=== PATIENT | female | born 1965 | race Caucasian/White ===

== ENCOUNTER 2017-02-11 13:19 | Emergency (ER) | payer MEDICAID, SELFPAY ==
[2017-02-11 15:58] VITALS: BP 148/78; PULSE 73; RESP 18; TEMP 37.2; O2SAT 99; BMI 21.2
--- NOTE | 2017-02-11 16:59 | HMH.EDUTC ---
[facility] [place] Clinical Impression: COPD with acute bronchitis, Costochondritis Disposition: Home, Self-Care Condition on Discharge: Good Instructions: DI for Acute Bronchitis, DI for Costochondritis Additional Instructions: * STOP SMOKING!!!! I know you are working on it. Keep up the good work. * start antibiotic today. Be sure to complete entire prescription even if feeling better. * Monitor Temp. FU if fever develops * Pain sounds like costochondiritis from so much coughing. Tylenol every 4 hours as needed no more then 5 times a day or 4000mg in 24 hours and/or ibuprofen every 6 hours as needed no more then 3200mg in 24 hours (as long as your primary care doctor has told you that it is ok to take both) for fever/aches/pain. * humidifier/vaporizer/hot steamy shower * Inhaler every 4-6 hours as needed like we discussed. Should help open airways and improve cough, wheezing, shortness of breath. * Mucinex during the day for your cough and cough suppressant only at night. Be sure to drink lots of water. Insurance may not cover a prescription of mucinex. Might be cheaper to get 400mg tablets and take 2 tablets morning, midday and evening all with lots of water. * Start steroid today. Helps with inflammation therefore, cough and wheezing. Follow directions on package. Rvwd side effects. Pt reports they have taken them before. Follow up IMMEDIATELY for new or worsening symptoms OR no noticeable improvement over the next 48-72 hours. 911 for difficulty breathing. Prescriptions: Azithromycin [Z-Ranulfo 250mg Tab] 250 mg PO UD DOSE PK #6 tab predniSONE [Prednisone 20mg Tab] 20 mg PO BID 5 Days #10 tab Referrals: Saqib Giles MD [Primary Care Provider] - Time of Disposition: 17:28 Medical Decision Making Vital Signs: 02/11/17 15:58 Temperature 98.9 F Temperature Source Temporal Artery Scan Pulse Rate [Left] 73 Respiratory Rate 18 Blood Pressure [Right Arm] 148/78 Blood Pressure Mean [Right Arm] 101 Blood Pressure Source [Right Arm] Automatic Cuff Blood Pressure Position [Right Arm] Sitting 02 Sat by Pulse Oximetry 99 Oxygen Delivery Method Room Air - Franc Inquiry Pt receiving controlled substance: No [facility] [place] HPI - General Stated complaint: suspected pluracy Time Seen by Provider: 02/11/17 16:45 Mode of Arrival: Ambulatory Source of Information: Patient Limitations: No Limitations Description of Symptoms (Recalled from Triage Doc. by RN): COUGH, PAINFUL BREATHING X3 DAYS HEENT Symptoms (Recalled from RN notes): No Resp Symptoms (Recalled from RN notes): Yes Skin Symptoms (Recalled from RN notes): No MS Symptoms (Recalled from RN notes): No Functional Status (Recalled from RN notes): N - History of Present Illness Provider Complaint: c/o productive cough and pain throughout ribs with coughing. Cough x 4-5 days with pain more last 1-2 days. Chronic mild nonprod cough. Tobacco abuse and COPD. Uses incruse and dulera daily. has noticed an increase need for ventolin the last 2 days. Sputum now, thick and yellow. No fever, aches, chills. pain worse when coughing, deep breathing or laying on ribs. Improved w/ motrin. Hasn't taken or tried anything else. No known sick contacts. - Related Data Previous Rx's Medication Instructions Recorded Azithromycin [Z-Ranulfo 250mg Tab] 250 mg PO UD DOSE PK #6 tab 02/11/17 predniSONE [Prednisone 20mg 20 mg PO BID 5 Days #10 tab 02/11/17 Tab] Allergies Allergy/AdvReac Type Severity Reaction Status Date / Time doxycycline [DOXYCYCLINE] Allergy Unknown Verified 02/11/17 16:02 - Worker's Comp Is this a Worker's Comp case?: No [facility] History I have reviewed the patient's past medical history: Yes Medical History: Reports:: Chronic Obstructive Pulmonary Disease (COPD) Denies:: Congestive Heart Failure, Diabetes Mellitus Type 1, Diabetes Mellitus Type 2, Hypertension - *Social History Smoking Status: Current every day smoker Tobacco Type: cigarettes Alc
== END 2017-02-11 17:36 | disposition home or self-care (01) ==
PROVIDERS: Emergency Provider Nurse Practitioner Family; PCP Emergency Medicine
DX: J44.0 Chronic obstructive pulmonary disease with (acute) lower respiratory infection (principal); M94.0 Chondrocostal junction syndrome [Tietze]; Z88.1 Allergy status to other antibiotic agents
CPT/HCPCS: 99202

== ENCOUNTER → 2017-04-15 12:05 | Outpatient (CLI) | payer MEDICAID, SELFPAY ==
--- NOTE | 2017-04-15 12:08 | XR_ITS ---
XR chest 2V HISTORY: Cough, smoker ITS.REASON: cough ORDERING PHYSICIAN: Savannah Turcios PATIENT AGE: 52 years COMPARISON: 01/17/2016 FINDINGS: The cardiomediastinal silhouette and pulmonary vascularity are within normal limits. There is hyperinflation with attenuation of the peripheral pulmonary vessels with mild coarsening of the bronchovascular markings consistent with COPD/smoking related lung disease. No lobar consolidation or collapse. No acute bony anomalies. IMPRESSION: COPD, no change with no acute finding
== END ==
PROVIDERS: PCP Emergency Medicine; Visit Provider Nurse Practitioner Family
DX: R05 Cough (principal)
CPT/HCPCS: 71046

== ENCOUNTER → 2017-05-18 09:44 | Outpatient (CLI) | payer MEDICAID, SELFPAY ==
[2017-05-18 10:35] VITALS: PULSE 68; PULSE 71
[2017-05-18 11:10] VITALS: BP 130/83; BP 140/90; PULSE 71; PULSE 98; RESP 16; RESP 22; O2SAT 97; O2SAT 98
--- NOTE | 2017-05-18 11:20 | CT_ITS ---
CT chest w con HISTORY: Follow-up pulmonary nodule, emphysema, COPD ITS.REASON: PULMONARY NODULES ORDERING PHYSICIAN: Yobani Arango MD PATIENT AGE: 52 years TECHNIQUE: Axial images obtained following the administration of 75 mL of Isovue 370 . Sagittal, and coronal reformatted images are also generated and reviewed. All CT scans at the facility use one or more dose reduction, viz: automated exposure control; ma/kV adjustment per patient size (including targeted exams where dose is matched to indication; i.e. head); or iterative reconstruction technique. COMPARISON: 08/04/2016 FINDINGS: No mediastinal or hilar mass. Small nodes are present in the right hilum. Right hilar nodes measure 14 x 14 mm. There are diffuse centrilobular and paraseptal emphysematous changes. The previously noted opacity in the right apex medially is unchanged. Scattered fibrotic changes are present throughout both lungs. No suspicious pulmonary nodules are evident. No effusions or infiltrates. No evidence of aortic aneurysm or central pulmonary embolus. Normal heart size. Unremarkable upper abdomen. No acute bony anomalies. IMPRESSION: 1. Centrilobular and paraseptal emphysema with scattered fibrotic changes. 2. No change right apical nodular opacity probably related to an area of parenchymal fibrosis. 3. Mildly prominent right hilar lymph nodes nonspecific
== END ==
PROVIDERS: PCP Emergency Medicine; Visit Provider Internal Medicine
DX: R06.02 Shortness of breath (principal); J43.2 Centrilobular emphysema; J44.9 Chronic obstructive pulmonary disease, unspecified; R91.8 Other nonspecific abnormal finding of lung field
CPT/HCPCS: 71260; 94060; 94618; 94640; 94727; 94729; Q9967

== ENCOUNTER → 2017-07-20 13:49 | Outpatient (POV) | payer MEDICAID, SELFPAY | PROVIDERS: PCP Emergency Medicine; Visit Provider Internal Medicine | DX: Z00.00 Encounter for general adult medical examination without abnormal findings (principal) ==

== ENCOUNTER → 2018-01-25 08:42 | Outpatient (POV) | payer MEDICAID, SELFPAY | PROVIDERS: Visit Provider Internal Medicine | DX: Z00.00 Encounter for general adult medical examination without abnormal findings (principal) ==

== ENCOUNTER → 2018-06-13 11:21 | Outpatient (CLI) | payer MEDICAID, SELFPAY ==
--- NOTE | 2018-06-13 11:42 | XR_ITS ---
XR chest 2V HISTORY: ITS.REASON: cough, history of smoking ORDERING PHYSICIAN: Savannah Turcios APRN PATIENT AGE: 53 years COMPARISON: 04/15/2017 FINDINGS: The cardiomediastinal silhouette and pulmonary vascularity are within normal limits. There is hyperinflation with attenuation of the peripheral pulmonary vessels consistent with COPD.. No lobar consolidation or collapse No acute bony abnormalities. IMPRESSION: COPD, no change with no acute finding
== END ==
PROVIDERS: PCP Nurse Practitioner Family; Visit Provider Nurse Practitioner Family
DX: R05 Cough (principal); R06.2 Wheezing
CPT/HCPCS: 71046

== ENCOUNTER → 2018-06-14 07:59 | Outpatient (CLI) | payer MEDICAID, SELFPAY ==
[2018-06-14 08:37] LABS: Basophils # 0.1 K/mm3 (0-0.2); Basophils % 0.8 % (0.1-2.0); Eosinophils # 0.2 K/mm3 (0.0-0.4); Eosinophils % 2.1 % (0.1-12.0); Hematocrit 47.2 % (37.0-47.0); Lymphocytes # 1.5 K/mm3 (0.7-4.5); Lymphocytes % 20.7 % (10-50); Mean Corpuscular HGB Conc 33.8 g/dL (31.8-35.4); Mean Corpuscular Hemoglobin 30.1 pg (27.0-31.2); Mean Corpuscular Volume 88.9 fl (81-99); Mean Platelet Volume 6.6 fl (7.4-10.4); Monocytes # 0.4 K/mm3 (0.1-1.0); Monocytes % 4.8 % (1.7-9.3); Neutrophils # 5.3 K/mm3 (1.8-7.8); Neutrophils % 71.8 % (37.0-80.0); Platelet Count 285 K/mm3 (142-424); Red Blood Count 5.31 M/mm3 (4.20-5.40); Red Cell Distribution Width 13.2 % (11.5-17.5); White Blood Count 7.4 K/mm3 (4.8-10.8)
[2018-06-14 11:04] LABS: Alanine Aminotransferase 23 U/L (12-78); Albumin Level 3.9 gm/dL (3.4-5.0); Albumin/Globulin Ratio 1.1 (1.1-1.8); Alkaline Phosphatase 113 U/L (46-116); Anion Gap 10.4 mEq/L (5-15); Aspartate Amino Transferase 11 U/L (15-37); Bilirubin,Total 0.4 mg/dL (0.2-1.0); Blood Urea Nitrogen 12 mg/dL (7-18); Calcium 8.7 mg/dL (8.5-10.1); Carbon Dioxide 30 mmol/L (21.0-32.0); Chloride 105 mmol/L (98-107); Chol/HDL Ratio 3.7 (1-3.5); Cholesterol 205 mg/dL (140-200); Estimated Glomerular Filt Rate 76 ml/min (>60); Free T4 (Free Thyroxine) 1.05 ng/dl (0.76-1.46); GFR (African American) 92 ML/MIN (>60); Globulin 3.5 gm/dl (1.3-3.2); Glucose 98 mg/dL (74-106); HDL Cholesterol 56 mg/dL (29-89); LDL Cholesterol 137 mg/dL (0-130); Potassium 4.4 mmoL/L (3.5-5.1); Sodium 141 mmol/L (136-145); Thyroid Stimulating Hormone 3.84 uIU/ml (0.358-3.740); Total Protein,Serum 7.4 gm/dL (6.4-8.2); Triglycerides 59 mg/dL (30-200); VLDL Cholesterol 12 mg/dL (0-40)
[2018-06-15 13:57] LABS: Estradiol 16.5 pg/mL (.); FSH 104.8 mIU/mL (.); LH 70.5 mIU/mL (.); Vitamin D 25 Hydroxy 22.4 ng/mL (30.0-100.0)
== END ==
PROVIDERS: Visit Provider Nurse Practitioner Family
DX: R23.2 Flushing (principal); R53.83 Other fatigue; N92.6 Irregular menstruation, unspecified; E55.9 Vitamin D deficiency, unspecified
CPT/HCPCS: 36415; 80053; 80061; 82652; 82670; 83001; 83002; 84439; 84443; 85025

== ENCOUNTER → 2018-07-06 10:46 | Outpatient (CLI) | payer MEDICAID, SELFPAY ==
[2018-07-06 11:35] VITALS: PULSE 68; PULSE 70
[2018-07-06 11:55] VITALS: BP 128/76; BP 138/90; PULSE 70; PULSE 94; RESP 16; RESP 18; O2SAT 94; O2SAT 97
== END ==
PROVIDERS: PCP Emergency Medicine; Visit Provider Internal Medicine
DX: J44.9 Chronic obstructive pulmonary disease, unspecified (principal)
CPT/HCPCS: 94060; 94618; 94640; 94727; 94729

== ENCOUNTER → 2019-01-09 09:10 | Outpatient (CLI) | payer OTHER, SELFPAY ==
--- NOTE | 2019-01-09 09:14 | XR_ITS ---
PROCEDURE: XR CHEST 2V CLINICAL HISTORY: cough Cough, congestion, smoker COMPARISON: CXR CHEST(2 VIEWS-NOT PORTABLE) from 01/15/2016 CXR CHEST(2 VIEWS-NOT PORTABLE) from 01/17/2016 CXR2V XR chest 2V from 04/15/[address] chest w con from 05/18/2017 FINDINGS: The cardiomediastinal silhouette and pulmonary vascularity are within normal limits. Patchy density is present in the left lower lobe and may represent an area of infiltrate. Recommend following till clear. No acute bony abnormalities. IMPRESSION: COPD with patchy infiltrate in the left lower lobe Dictated by: Juliano Rothman MD 01/09/2019 15:47 Electronically signed by Juliano Rothman MD in [place] 01/09/2019 15:47
== END ==
PROVIDERS: PCP Emergency Medicine; Visit Provider Nurse Practitioner Family
DX: R05 Cough (principal); R09.89 Other specified symptoms and signs involving the circulatory and respiratory systems
CPT/HCPCS: 71046

== ENCOUNTER → 2019-03-17 12:52 | Outpatient (CLI) | payer OTHER, SELFPAY ==
--- NOTE | 2019-03-17 12:57 | CT_ITS ---
PROCEDURE: CT CHEST WO CON CLINICAL INDICATION: LUNG NODULE Follow-up lung nodule COMPARISON: [facility] CT CHEST W/O CONTRAST from 08/04/[address] chest w con from 05/18/2017 TECHNIQUE: Axial images obtained with sagittal and coronal reformats. All CT scans at the facility use one or more dose reduction, viz: automated exposure control, ma/kV adjustment per patient size (including targeted exams where dose is matched to indication, i.e. head), or iterative reconstruction technique. FINDINGS: COPD with centrilobular emphysema and scattered areas of scarring. Biapical fibrosis is present. In addition, there is a 6 mm opacity in the right apex medially image 16 series 3 which appears somewhat more prominent but could be related to slice orientation.. A 3 mm nodular opacity is present in the right upper lobe laterally probably unchanged and irregular opacity is present in the right upper lobe posteriorly at 6 mm unchanged. No central obstructing lesions. The no acute bony anomalies. IMPRESSION: COPD with centrilobular emphysema and scattered parenchymal opacities as described above. Most of these are not significantly changed. One nodular opacity in the right upper lobe medially is slightly more prominent but could be related to the technique. Consider continued six-month follow-up. Dictated by: Juliano Rothman MD 03/20/2019 08:34 Electronically signed by Juliano Rothman MD in [place] 03/20/2019 08:34
== END ==
PROVIDERS: PCP Emergency Medicine; Visit Provider Nurse Practitioner Family
DX: R91.1 Solitary pulmonary nodule (principal)
CPT/HCPCS: 71250

== ENCOUNTER → 2019-03-22 15:35 | Outpatient (CLI) | payer OTHER, SELFPAY ==
--- NOTE | 2019-03-22 15:35 | MM_ITS ---
PROCEDURE: MM DIG SCREENING MAMM BI W/CAD CLINICAL INDICATION: screening There is no personal or family history of breast cancer COMPARISON: DMSB DIG MAMM-SCREEN MAGDALENA W/CAD from 02/20/2016 [id number] DIG MAMM-DX UNI A/VW-RT W/CAD from 03/04/2016 TECHNIQUE: Standard CC and MLO images and 3D Tomosynthesis was obtained. R2 CAD reviewed. FINDINGS: Moderate diffuse fibroglandular densities are seen in the central portions of both breasts. The findings are fairly symmetrical bilaterally. Jaret images were reviewed showing no suspicious abnormality. There are no suspicious microcalcifications. IMPRESSION: Moderate breast density with no suspicious lesions seen BI-RAD Category: 1 Negative FOLLOW-UP: 1YR 1 Year Follow-up (A letter has been sent to the patient regarding results of the study.) Dictated by: Dr. Mark Jackson MD 03/25/2019 08:[address] Mark Jackson MD in [place] 03/25/2019 08:57
== END ==
PROVIDERS: PCP Emergency Medicine; Visit Provider Emergency Medicine
DX: Z12.31 Encounter for screening mammogram for malignant neoplasm of breast (principal)
CPT/HCPCS: 77063; 77067

== ENCOUNTER → 2019-09-19 14:32 | Outpatient (CLI) | payer OTHER, SELFPAY ==
[2019-09-19 15:30] VITALS: PULSE 61; PULSE 64
== END ==
PROVIDERS: PCP Emergency Medicine; Visit Provider Nurse Practitioner Family
DX: J44.9 Chronic obstructive pulmonary disease, unspecified (principal)
CPT/HCPCS: 94060; 94618; 94640; 94727; 94729

== ENCOUNTER → 2019-11-27 09:04 | Outpatient (CLI) | payer OTHER, SELFPAY ==
--- NOTE | 2019-11-27 09:07 | CT_ITS ---
PROCEDURE: CT CHEST WO CON CLINICAL INDICATION: MULTIPLE PULMONARY NODULES Follow-up pulmonary nodules COMPARISON: CT CT CHEST WO CON from 03/17/2019 TECHNIQUE: Axial images obtained with sagittal and coronal reformats. All CT scans at the facility use one or more dose reduction, viz: automated exposure control, ma/kV adjustment per patient size (including targeted exams where dose is matched to indication, i.e. head), or iterative reconstruction technique. FINDINGS: HEART AND MEDIASTINAL STRUCTURES: There are few scattered small mediastinal lymph nodes which do not appear significantly changed. LUNGS AND PLEURAL SPACES: Centrilobular emphysema and paraseptal emphysema noted with scattered areas of scarring. There is new parenchymal opacity in the left apex medially. This contains some internal lucencies. Previously noted opacity in the right upper lobe medially is not significantly changed. No effusions are evident. BONY STRUCTURES: No acute bony abnormalities apparent. UPPER ABDOMEN: There is faint areas of increased density in the right kidney suggesting nephrolithiasis or arterial calcification. ADDITIONAL FINDINGS: No other significant abnormalities. IMPRESSION: COPD with centrilobular emphysema and paraseptal emphysema with scattered areas of scarring and with a new parenchymal opacity in the left apex medially. This does contain some central lucencies and may represent an area of lung consolidation or volume loss. Recommend continued six-month follow-up to confirm resolution or stability due to the new lesion. Previously noted opacity in the right apex is unchanged. Dictated by: Juliano Rothman MD 11/28/2019 06:29 Juliano Rothman MD in [place] 11/28/2019 06:29
== END ==
PROVIDERS: PCP Emergency Medicine; Referring Provider Internal Medicine Pulmonary Disease; Visit Provider Internal Medicine
DX: R91.8 Other nonspecific abnormal finding of lung field (principal); J44.9 Chronic obstructive pulmonary disease, unspecified; R05 Cough; J43.2 Centrilobular emphysema; R06.02 Shortness of breath
CPT/HCPCS: 71250

== ENCOUNTER → 2020-02-20 18:24 | Outpatient (CLI) | payer OTHER, SELFPAY ==
[2020-02-20 19:16] LABS: Basophils # 0.1 K/mm3 (0-0.2); Basophils % 1.2 % (0.1-2.0); Eosinophils # 0.2 K/mm3 (0.0-0.4); Eosinophils % 2.1 % (0.1-12.0); Hematocrit 50.4 % (37.0-47.0); Hemoglobin 16.3 g/dL (12.2-16.2); Lymphocytes # 1.9 K/mm3 (0.7-4.5); Lymphocytes % 22.9 % (10-50); Mean Corpuscular HGB Conc 32.3 g/dL (31.8-35.4); Mean Corpuscular Hemoglobin 30.6 pg (27.0-31.2); Mean Corpuscular Volume 94.6 fl (81-99); Mean Platelet Volume 8.3 fl (7.4-10.4); Monocytes # 0.4 K/mm3 (0.1-1.0); Monocytes % 5.1 % (1.7-9.3); Neutrophils # 5.7 K/mm3 (1.8-7.8); Neutrophils % 68.7 % (37.0-80.0); Platelet Count 308 K/mm3 (142-424); Red Blood Count 5.33 M/mm3 (4.20-5.40); Red Cell Distribution Width 13.7 % (11.5-17.5); White Blood Count 8.3 K/mm3 (4.8-10.8)
[2020-02-20 19:49] LABS: Alanine Aminotransferase 17 U/L (12-78); Albumin Level 4.4 g/dl (3.5-5.0); Albumin/Globulin Ratio 1.5 (1.1-1.8); Alkaline Phosphatase 111 U/L (38-126); Anion Gap 13.1 mEq/L (5-15); Aspartate Amino Transferase 24 U/L (14-36); Bilirubin,Total 0.4 mg/dl (0.2-1.3); Blood Urea Nitrogen 15 mg/dl (7-17); Calcium 9.4 mg/dl (8.4-10.2); Carbon Dioxide 31 mmol/L (22.0-30.0); Chloride 100 mmol/L (98-107); Chol/HDL Ratio 3.2 (1-3.5); Cholesterol 222 mg/dl (140-200); Estimated Glomerular Filt Rate 75 ml/min (>60); GFR (African American) 91 ML/MIN (>60); Globulin 2.9 g/dL (1.3-3.2); Glucose 84 mg/dl (74-100); HDL Cholesterol 69 mg/dl (40-60); Potassium 5.1 mmoL/L (3.5-5.1); Sodium 139 mmol/L (136-145); Total Protein,Serum 7.3 g/dl (6.3-8.2); Triglycerides 63 mg/dl (30-150); VLDL Cholesterol 13 mg/dL (0-40)
[2020-02-20 20:00] LABS: Direct LDL Cholesterol 124.94 mg/dL (100-129)
[2020-02-20 20:06] LABS: Free T4 (Free Thyroxine) 1.17 ng/dl (0.78-2.19)
[2020-02-20 20:07] LABS: 25-OH Vitamin D, Total 19.4 ng/mL (30-100)
[2020-02-20 20:20] LABS: Thyroid Stimulating Hormone 3.41 uIU/mL (0.465-4.68)
== END ==
PROVIDERS: Visit Provider Emergency Medicine
DX: J44.9 Chronic obstructive pulmonary disease, unspecified (principal); E55.9 Vitamin D deficiency, unspecified
CPT/HCPCS: 80053; 80061; 82306; 84439; 84443; 85025

== ENCOUNTER → 2020-05-14 13:45 | Outpatient (CLI) | payer OTHER, SELFPAY ==
--- NOTE | 2020-05-14 13:45 | CT_ITS ---
PROCEDURE: CT CHEST WO CON CLINICAL INDICATION: Nodule 6 month follow up Prior on pacs COMPARISON: CT CT CHEST WO CON from 03/17/[address] CHEST WO CON from 11/27/2019 TECHNIQUE: Axial images obtained with sagittal and coronal reformats. All CT scans at the facility use one or more dose reduction, viz: automated exposure control, ma/kV adjustment per patient size (including targeted exams where dose is matched to indication, i.e. head), or iterative reconstruction technique. FINDINGS: HEART AND MEDIASTINAL STRUCTURES: There is scattered small mediastinal lymph nodes unchanged. LUNGS AND PLEURAL SPACES: COPD with centrilobular emphysema and scattered areas of scarring. Biapical scarring once again noted. Two small nodules right upper lobe laterally at 4 mm each unchanged. Thickening along the right minor fissure laterally has developed since the previous exam may be due to some subpleural atelectatic change.. There is some nodularity in this region measuring 8 mm. Are there is mild diffuse bronchial thickening. Previously noted opacity in the left apex posteriorly has resolved consistent with an area of atelectasis or infiltrate which has improved. There is a new opacity in the left upper lobe series 3, image 27 measuring 7 mm. No effusions or infiltrates. There is some patchy ground-glass attenuation in the left perihilar region nonspecific within the lower lobe. BONY STRUCTURES: No acute bony abnormalities apparent. UPPER ABDOMEN: Nonobstructing stone is present in the upper pole of the right kidney at 4 mm. ADDITIONAL FINDINGS: No other significant abnormalities. IMPRESSION: 1. COPD with centrilobular emphysematous changes and scattered areas of scarring. Previously noted area of opacification in the left upper lobe has resolved. 2. There is a new nodular opacity in the region of the right minor fissure . This may be due to developing nodule or atelectatic/inflammatory change. Additional nodular opacity is present in the left upper lobe at 7 mm and may be related to an area of atelectasis or developing scarring. Continued three to six-month follow-up may confirm stability or resolution of the new nodules. Dictated by: Juliano Rothman MD 05/16/2020 10:08 Juliano Rothman MD in [place] 05/16/2020 10:08
== END ==
PROVIDERS: PCP Emergency Medicine; Visit Provider Internal Medicine Pulmonary Disease
DX: R91.8 Other nonspecific abnormal finding of lung field (principal)
CPT/HCPCS: 71250

== ENCOUNTER → 2020-08-30 14:16 | Outpatient (CLI) | payer OTHER, SELFPAY ==
[2020-08-30 14:41] LABS: Basophils # 0.1 K/mm3 (0-0.2); Basophils % 0.8 % (0.1-2.0); Eosinophils # 0.1 K/mm3 (0.0-0.4); Eosinophils % 1.1 % (0.1-12.0); Hematocrit 46.7 % (37.0-47.0); Hemoglobin 15.3 g/dL (12.2-16.2); Lymphocytes # 1.4 K/mm3 (0.7-4.5); Lymphocytes % 12.7 % (10-50); Mean Corpuscular HGB Conc 32.8 g/dL (31.8-35.4); Mean Corpuscular Hemoglobin 29.1 pg (27.0-31.2); Mean Corpuscular Volume 88.6 fl (81-99); Mean Platelet Volume 7.4 fl (7.4-10.4); Monocytes # 0.6 K/mm3 (0.1-1.0); Monocytes % 5.3 % (1.7-9.3); Neutrophils # 9.1 K/mm3 (1.8-7.8); Platelet Count 304 K/mm3 (142-424); Red Blood Count 5.27 M/mm3 (4.20-5.40); Red Cell Distribution Width 13.5 % (11.5-17.5); White Blood Count 11.3 K/mm3 (4.8-10.8)
[2020-09-01 08:13] LABS: Alpha-1-Antitrypsin 178 mg/dL (101-187)
[2020-09-05 09:39] LABS: D001-IgE D pteronyssinus <0.10 kU/L (Class 0); D002-IgE D farinae <0.10 kU/L (Class 0); E001-IgE Cat Dander <0.10 kU/L (Class 0); E005-IgE Dog Dander <0.10 kU/L (Class 0); E072-IgE Mouse Urine <0.10 kU/L (Class 0); G002-IgE Bermuda Grass <0.10 kU/L (Class 0); G006-IgE Timothy Grass <0.10 kU/L (Class 0); I006-IgE Cockroach, German <0.10 kU/L (Class 0); Immunoglobulin E, Total 9 IU/mL (6-495); M001-IgE Penicillium chrysogen <0.10 kU/L (Class 0); M002-IgE Cladosporium herbarum <0.10 kU/L (Class 0); M003-IgE Aspergillus fumigatus <0.10 kU/L (Class 0); M006-IgE Alternaria alternata <0.10 kU/L (Class 0); T001-IgE Maple/Box Elder <0.10 kU/L (Class 0); T006-IgE Cedar, Mountain <0.10 kU/L (Class 0); T007-IgE Oak, White <0.10 kU/L (Class 0); T008-IgE Elm, American <0.10 kU/L (Class 0); T010-IgE Walnut <0.10 kU/L (Class 0); T011-IgE Maple Leaf Sycamore <0.10 kU/L (Class 0); T014-IgE Cottonwood <0.10 kU/L (Class 0); T015-IgE Ash, White <0.10 kU/L (Class 0); T022-IgE Pecan, Hickory <0.10 kU/L (Class 0); T070-IgE White Mulberry <0.10 kU/L (Class 0); W001-IgE Ragweed, Short <0.10 kU/L (Class 0); W011-IgE Thistle, Russian <0.10 kU/L (Class 0); W014-IgE Pigweed, Common <0.10 kU/L (Class 0); W016-IgE Rough Marshelder <0.10 kU/L (Class 0)
== END ==
PROVIDERS: Visit Provider Internal Medicine Pulmonary Disease
DX: J44.9 Chronic obstructive pulmonary disease, unspecified (principal); J45.909 Unspecified asthma, uncomplicated
CPT/HCPCS: 36415; 82103; 82785; 85025; 86003

== ENCOUNTER → 2020-10-04 17:54 | Outpatient (CLI) | payer OTHER, SELFPAY ==
[2020-10-04 19:25] LABS: Amphetamine/Metha Screen,Urine Negative ng/ml (<1000)
[2020-10-04 19:26] LABS: Barbiturates Screen,Urine Negative ng/ml (<200)
[2020-10-04 19:27] LABS: Benzodiazepines Screen,Urine Negative ng/ml (<200); Cannabinoid Screen,Urine Positive ng/ml (<50)
[2020-10-04 19:29] LABS: Cocaine Screen,Urine Negative ng/ml (<300); Methadone Screen,Urine Negative ng/ml (<300)
[2020-10-04 19:30] LABS: Opiate Screen,Urine Positive ng/ml (<300)
[2020-10-04 19:31] LABS: Phencyclidine Screen,Urine Negative ng/ml (<25)
== END ==
PROVIDERS: Visit Provider Nurse Practitioner Family
DX: Z76.0 Encounter for issue of repeat prescription (principal)
CPT/HCPCS: 80305

== ENCOUNTER → 2020-12-04 13:15 | Outpatient (CLI) | payer OTHER, SELFPAY ==
[2020-12-04 14:42] LABS: Benzodiazepines Screen,Urine Negative ng/ml (<200)
[2020-12-04 14:43] LABS: Amphetamine/Metha Screen,Urine Negative ng/ml (<1000); Barbiturates Screen,Urine Negative ng/ml (<200)
[2020-12-04 14:44] LABS: Cannabinoid Screen,Urine Positive ng/ml (<50); Methadone Screen,Urine Negative ng/ml (<300)
[2020-12-04 14:45] LABS: Cocaine Screen,Urine Negative ng/ml (<300)
[2020-12-04 14:46] LABS: Opiate Screen,Urine Negative ng/ml (<300); Phencyclidine Screen,Urine Negative ng/ml (<25)
== END ==
PROVIDERS: Visit Provider Emergency Medicine
DX: Z79.899 Other long term (current) drug therapy (principal)
CPT/HCPCS: 80305

== ENCOUNTER → 2020-12-05 12:53 | Outpatient (CLI) | payer OTHER, SELFPAY ==
--- NOTE | 2020-12-05 12:53 | CT_ITS ---
PROCEDURE: CT CHEST WO CON CLINICAL INDICATION: nodule COMPARISON: CT CT CHEST WO CON from 03/17/[address] CHEST WO CON from 11/27/[address] CHEST WO CON from 05/14/2020 TECHNIQUE: Axial images obtained with sagittal and coronal reformats. All CT scans at the facility use one or more dose reduction, viz: automated exposure control, ma/kV adjustment per patient size (including targeted exams where dose is matched to indication, i.e. head), or iterative reconstruction technique. FINDINGS: airways are clear. No bronchiectasis. There is severe centrilobular emphysema. There is a 5 millimeter nodule with pleural tethering in the posterior segment right upper lobe. There is subsegmental atelectasis in the left lower lobe. The prior nodular opacity in the apicoposterior segment left upper lobe is now nearly resolved with mild residual ground-glass opacity in the region. No new nodules identified.2 there is no lymphadenopathy. Heart is not enlarged. There is a right renal calculus. Otherwise visualized intra-abdominal contents unremarkable. IMPRESSION: 1. Interval resolution of left upper lobe nodular opacity. 2. Stable nodule with pleural tethering measuring 5mm in posterior segment right upper lobe. Fleischner Society Guidelines (2017) recommend optional CT at 12 months (May 2021). 3. Right renal calculus. 4. Severe emphysema. Dictated by: Lary Mancini MD 12/05/2020 16:59 Lary Mancini MD in [place] 12/05/2020 16:59
== END ==
PROVIDERS: PCP Emergency Medicine; Visit Provider Internal Medicine Pulmonary Disease
DX: R91.8 Other nonspecific abnormal finding of lung field (principal)
CPT/HCPCS: 71250

== ENCOUNTER 2021-10-16 09:47 | Observation (INO) | payer OTHER, SELFPAY ==
[2021-10-16] VITALS (16 sets, daily range): BP systolic 102–131; BP diastolic 67–93; PULSE 79–121; RESP 17–40; TEMP 36.6–36.8; O2SAT 88–99; BMI 22.3; BMI 21.9
--- NOTE | 2021-10-16 10:10 | ECG_ITS ---
APPROVED REPORT Exam: Resting ECG HR:109 bpm ECG Measurements Heart Rate 109 AXES GA 108 P 68 QRSd 86 QRS 82 QT 307 T 79 QTc 371 Conclusion SINUS TACHYCARDIA WITH SHORT GA INTERVAL ABNORMAL RHYTHM ECG UNCONFIRMED REPORT Electronically signed by : Aguilar Moreno MD 10/16/2021 14:45:41
--- NOTE | 2021-10-16 10:16 | HMH.EDGENADL ---
Discharge Plan Disposition Patient Disposition: Admitted As Inpatient Condition: Fair Prescriptions Prescriptions: No Action fluticasone propionate [Allergy Relief (fluticasone)] 50 mcg/actuation spray,suspension 1 spray INTRANASAL QDAY 30 Days Qty: 9.9 2RF Rx Instructions: administer into each nostril Spiriva with HandiHaler 18 mcg capsule, w/inhalation device 1 cap INHALATION DAILY 90 Days Qty: 90 3RF Rx Instructions: puncture 1 cap using device; one dose = 2 inhalations clobetasol 0.05 % cream 1 applic TOPICAL BID Qty: 60 4RF bupropion HCl 75 mg tablet See Rx Instructions .ROUTE .COMPLEX Qty: 60 3RF Dose Instruction: TAKE ONE TABLET BY MOUTH EVERY DAY FOR TWO WEEKS, THEN ONE TABLET TWICE DAILY THERE AFTER Rx Instructions: TAKE ONE TABLET BY MOUTH EVERY DAY FOR TWO WEEKS, THEN ONE TABLET TWICE DAILY THERE AFTER cholecalciferol (vitamin D3) 25 mcg (1,000 unit) capsule 25 mcg PO DAILY 90 Days Qty: 90 3RF nicotine (polacrilex) [Nicorette] 2 mg gum 2 mg BUCCAL Q2H Qty: 50 2RF hydrocodone-acetaminophen 5-325 mg tablet 1 tab PO TID Qty: 90 0RF ergocalciferol (vitamin D2) 1,250 mcg (50,000 unit) capsule 1,250 mcg PO WEEKLY Qty: 5 3RF albuterol sulfate [ProAir HFA] 90 mcg/actuation HFA aerosol inhaler See Rx Instructions .ROUTE .COMPLEX Qty: 8.5 4RF Dose Instruction: --SHAKE WELL-- AND INHALE 1 PUFF EVERY 4 TO 6 HOURS NEEDED FOR SHORTNESS OF BREATH/WHEEZING Rx Instructions: --SHAKE WELL-- AND INHALE 1 PUFF EVERY 4 TO 6 HOURS NEEDED FOR SHORTNESS OF BREATH/WHEEZING fluticasone propion-salmeterol [Advair Diskus] 250-50 mcg/dose blister with device 1 inh INHALATION BID 90 Days Qty: 180 3RF cetirizine 10 mg tablet See Rx Instructions .ROUTE .COMPLEX Qty: 30 2RF Dose Instruction: TAKE ONE TABLET BY MOUTH EVERY DAY Rx Instructions: TAKE ONE TABLET BY MOUTH EVERY DAY Referrals Follow up/Referrals: Saqib Giles MD [Primary Care Provider] - See instructions Clinical Impressions Clinical Impression: Acute exacerbation of chronic obstructive pulmonary disease, Acute respiratory failure with hypoxia, Acute bronchitis Discharge ED Provider: John Bailey General Adult HPI General Chief complaint: Shortness of Breath/Dyspnea Stated complaint: soa Time Seen by Provider: 10/16/21 10:30 History of Present Illness HPI narrative: She has a history of COPD. She got sick last week with cough and fever. Treated with an antibiotic, Zithromax. She had a negative COVID home test. She got better for a couple of days, but since then has been short of breath. No longer has a fever. Still coughing, she thinks sputum might be white to plata. No chest pain. She tried her son's nebulizer without improvement. She has inhalers at home including an albuterol rescue inhaler which she has been using without improvement. She has not recently been on steroids. She is not on oxygen at home. She is a former smoker, quit 1 month ago. Related Data Previous Rx's Medication Instructions Recorded ergocalciferol (vitamin D2) 1,250 1,250 mcg PO WEEKLY #5 caps 02/22/20 mcg (50,000 unit) capsule bupropion HCl 75 mg tablet See Rx Instructions .Route 10/04/20 .COMPLEX #60 tabs cholecalciferol (vitamin D3) 25 25 mcg PO DAILY 90 days #90 caps 10/04/20 mcg (1,000 unit) capsule nicotine (polacrilex) 2 mg gum 2 mg buccal Q2H #50 ea 12/04/20 (Nicorette) fluticasone propionate 50 1 spray intranasal QDAY 30 days 01/29/21 mcg/actuation nasal #9.9 grams spray,suspension (Allergy Relief (fluticasone)) clobetasol 0.05 % topical cream 1 applic topical BID #60 grams 03/21/21 tiotropium bromide 18 mcg capsule 1 cap inhalation DAILY 90 days #90 04/16/21 with inhalation device (Spiriva puffs with HandiHaler) Advair Diskus 250 mcg-50 mcg/dose 1 inh inhalation BID 90 days #180 08/28/21 powder for inhalation (fluticasone ea propion-salmetero
--- NOTE | 2021-10-16 10:20 | XR_ITS ---
FINAL REPORT CLINICAL HISTORY: sob, prod. cough COMPARISON: January 09, 2019 FINDINGS: Two views of the chest were obtained. The heart size and pulmonary vascularity are within normal limits. The mediastinum is normal. The lungs are hyperinflated consistent with COPD. There is mild scarring/fibrosis. There is no pneumothorax. The bony thorax is intact. IMPRESSION: No acute cardiopulmonary process. Reviewed, Interpreted and Dictated by Rivas Goodrich III, MD Transcribed by José Luis Mendoza Authenticated and [facility]
[2021-10-16 10:29] LABS: Basophils # 0.1 K/mm3 (0-0.2); Basophils % 0.8 % (0.1-2.0); Eosinophils # 0.2 K/mm3 (0.0-0.4); Eosinophils % 1.9 % (0.1-12.0); Hematocrit 48.7 % (37.0-47.0); Hemoglobin 15.6 g/dL (12.2-16.2); Lymphocytes % 17.5 % (10-50); Mean Corpuscular HGB Conc 32.1 g/dL (31.8-35.4); Mean Corpuscular Hemoglobin 28.7 pg (27.0-31.2); Mean Corpuscular Volume 89.4 fl (81-99); Monocytes # 0.7 K/mm3 (0.1-1.0); Monocytes % 6.2 % (1.7-9.3); Neutrophils # 8.6 K/mm3 (1.8-7.8); Neutrophils % 73.6 % (37.0-80.0); Platelet Count 339 K/mm3 (142-424); Red Blood Count 5.45 M/mm3 (4.20-5.40); Red Cell Distribution Width 13.1 % (11.5-17.5); White Blood Count 11.6 K/mm3 (4.8-10.8)
[2021-10-16 10:31] LABS: Coronavirus 19, PCR Not Detected (NotDetected); Influenza A, PCR Not Detected (NotDetected); Influenza B, PCR Not Detected (NotDetected)
[2021-10-16 10:42] LABS: Alanine Aminotransferase 23 U/L (12-78); Albumin Level 4.3 g/dl (3.5-5.0); Albumin/Globulin Ratio 1.3 (1.1-1.8); Alkaline Phosphatase 128 U/L (38-126); Anion Gap 9.4 mEq/L (5-15); Aspartate Amino Transferase 39 U/L (14-36); Bilirubin,Total 0.3 mg/dl (0.2-1.3); Blood Urea Nitrogen 13 mg/dl (7-17); Carbon Dioxide 32 mmol/L (22.0-30.0); Chloride 102 mmol/L (98-107); Creatinine Clearance Estimated 75 mL/min (50-200); Estimated Glomerular Filt Rate 75 ml/min (>60); GFR (African American) 90 ML/MIN (>60); Globulin 3.3 g/dL (1.3-3.2); Glucose 83 mg/dl (74-100); Potassium 4.4 mmoL/L (3.5-5.1); Sodium 139 mmol/L (136-145); Total Protein,Serum 7.6 g/dl (6.3-8.2)
--- NOTE | 2021-10-16 10:53 | PC.NURSE ---
rounded on pt, pt states no needs at this time, call light with reach. Will continue to monitor
[2021-10-16 10:59] LABS: Lactic Acid 1.5 mmol/L (0.7-2.1)
[2021-10-16 11:04] LABS: Troponin I < 0.01 ng/ml (0.00-0.034)
--- NOTE | 2021-10-16 12:32 | PC.NURSE ---
O2 off. at bedside. updated on plan of care
--- NOTE | 2021-10-16 13:14 | PC.NURSE ---
CONCHITA PRICE on the phone speaking with neus for admitting pt
--- NOTE | 2021-10-16 13:18 | PC.NURSE ---
ER DOCTOR ASKED WHO WAS [employer] AND IT WAS JAKE. DR JOSEPH CONTACTED AND WOULD CALL BACK.
--- NOTE | 2021-10-16 13:20 | PC.NURSE ---
DR JOSEPH CALLED BACK AND SPOKE WITH ER DOCTOR AND PT WAS GOING TO BE ADMITTED
--- NOTE | 2021-10-16 13:57 | PC.NURSE ---
Pt arrived to the floor at this time
--- NOTE | 2021-10-16 14:29 | EXP.PHA.VTE ---
[facility] Pharmacy VTE Monitoring Patient Demographics Admission date: 10/16/21 Report Date: 10/16/21 Time: 14:29 Patient Allergies doxycycline [DOXYCYCLINE] Allergy (Unknown, Verified 09/15/21 13:07) Height: 1.63 m Weight: 58.202 kg Current Active Problems (Updated 10/16/21 @ 13:17 by John Bailey MD) Acute exacerbation of chronic obstructive pulmonary disease (Acute) Acute respiratory failure with hypoxia (Acute) Acute bronchitis (Acute) VTE Risk Labs: VTE Related Lab Results Hgb 15.6 g/dL (12.2-16.2) 10/16/21 10:10 Hct 48.7 % (37.0-47.0) H 10/16/21 10:10 Plt Count 339 K/mm3 (142-424) 10/16/21 10:10 BUN 13 mg/dl (7-17) 10/16/21 10:10 Creatinine 0.80 mg/dl (0.52-1.04) 10/16/21 10:10 Estimated Creat Clear 75 mL/min (50-200) 10/16/21 10:10 Clinical Trial Participant: Yes Prophylaxis VTE Prophylaxis Ordered?: Yes Types of VTE Prophylaxis: TEDS Knee High
--- NOTE | 2021-10-16 14:33 | HMH.PHAINT1 ---
Pharmacy Intervention Comments: CLARIFIED HOME MEDICATION LIST USING LIST FROM OUTPATIENT PHARMACY
--- NOTE | 2021-10-16 17:25 | PC.NURSE ---
shift summary: new admit this shift. GCS 15. On 3L NC continuously. No dyspnea or pain noted. Bilateral lungs diminished. Ambulates to bathroom without assistance. Tolerates a regular diet. PIV saline locked.
--- NOTE | 2021-10-16 17:44 | EXP.HP ---
History of Present Illness *Admission Date: 10/16/21 *Reason for visit:: copd exacerbation *History of present illness: HPI narrative: She has a history of COPD.? She got sick last week with cough and fever.? Treated with an antibiotic, Zithromax.? She had a negative COVID home test.? She got better for a couple of days, but since then has been short of breath.? No longer has a fever.? Still coughing, she thinks sputum might be white to plata.? No chest pain.? She tried her son's nebulizer without improvement.? She has inhalers at home including an albuterol rescue inhaler which she has been using without improvement.? She has not recently been on steroids.? She is not on oxygen at home.? She is a former smoker, quit 1 month ago. [facility] Medical History Bronchitis Upper respiratory infection Social History (Updated 10/16/21 @ 14:40 by Sonya Guerra RN) Smoking Status: Current some day smoker tobacco type: e-cigarettes alcohol intake: never substance use type: denies use current occupational status: employed and other Travel in the last 8 weeks: None household members: spouse housing: house Review of Systems Review of Systems Review of systems:: pertinent systems reviewed and negative unless documented below Constitutional Constitutional: Reports lethargy Eyes Eyes: Reports system reviewed and no additional complaints, except as documented ENT Ears, Nose, Mouth, and Throat: Reports system reviewed and no additional complaints, except as documented *Cardiovascular Cardiovascular: Reports system reviewed and no additional complaints, except as documented, Reports dyspnea and Reports dyspnea on exertion *Respiratory Respiratory: Reports change in phlegm color, Reports chest congestion, Reports cough, Reports dyspnea, Reports dyspnea on exertion, Reports excessive phlegm production and Denies hemoptysis *Gastrointestinal Gastrointestinal: Reports system reviewed and no additional complaints, except as documented *Genitourinary Genitourinary: Reports system reviewed and no additional complaints, except as documented *Musculoskeletal Musculoskeletal: Reports system reviewed and no additional complaints, except as documented Integumentary/Breasts Skin/Breast: Reports system reviewed and no additional complaints, except as documented *Neurologic Neurologic: Reports system reviewed and no additional complaints, except as documented Psychiatric Psychiatric: Reports system reviewed and no additional complaints, except as documented Endocrine Endocrine: Reports system reviewed and no additional complaints, except as documented Hematologic/Lymphatic Hematologic/Lymphatic: Reports system reviewed and no additional complaints, except as documented Allergic/Immunologic Allergic/Immunologic: Reports system reviewed and no additional complaints, except as documented Meds Home Medications and Allergies Home Medications Medication Instructions Recorded Confirmed Type albuterol sulfate 90 mcg/actuation 1 puff inhalation Q4-6H PRN COPD 10/16/21 10/16/21 History aerosol inhaler (ProAir HFA) cetirizine 10 mg tablet 10 mg PO DAILY Allergy symptoms 10/16/21 10/16/21 History fluticasone 250 mcg-salmeterol 50 1 inh inhalation BID COPD 10/16/21 10/16/21 History mcg/dose blistr powdr for inhalation (Advair Diskus) fluticasone propionate 50 1 spray intranasal QDAY COPD 10/16/21 10/16/21 History mcg/actuation nasal spray,suspension (Allergy Relief (fluticasone)) hydrocodone 5 mg-acetaminophen 325 1 tab PO TID Pain 10/16/21 10/16/21 History mg tablet tiotropium bromide 18 mcg capsule 1 cap inhalation DAILY COPD 10/16/21 10/16/21 History with inhalation device (Spiriva with HandiHaler) New Prescriptions to Start Prescriptions: Allergies Allergy/AdvReac Type Severity Reaction Status Date / Time doxycycline [DOXYCYCLINE] Allergy Unknown Verified 09/15/21
[2021-10-17 04:00] VITALS: BP 124/59; PULSE 67; RESP 19; TEMP 36.6; O2SAT 95
[2021-10-17 05:00] VITALS: BMI 21.9
[2021-10-17 06:35] VITALS: PULSE 64; PULSE 70; O2SAT 97
--- NOTE | 2021-10-17 06:47 | PC.NURSE ---
pt c/o headache at beginning of shift, and has slept most of the night. she has had no other complaints. she remains on 3L NC and has tolerated well. no other complaints or issues. call light within reach.
[2021-10-17 08:00] VITALS: BP 116/61; PULSE 74; RESP 18; TEMP 36.7; O2SAT 94
--- NOTE | 2021-10-17 08:20 | CA_ITS ---
APPROVED REPORT EXAM: Comprehensive 2D, Doppler, and color-flow Echocardiogram Ground Support Equipment Fitter: Ivet Yee RVT Ht: 5 ft 4 in Wt: 128lbs BSA: 1.62 BP: 131/67 mmHg Indications: COPD,SOA,SMOKER TDS-LIMITED WINDOWS 2D Dimensions LVOT 1.95 cm (M/F) 1.5-2.5 M-Mode Dimensions RVDd 1.98 cm (0.9-2.6) LA Diam 2.38 cm (1.9-4.0) LVDd 3.22 cm (3.5-5.7) Ao Diam 2.28 cm (2.0-3.7) LVDs 1.96 cm (3.5-5.7) IVSd 0.57 cm (0.6-1.1) PWd 0.91 cm (0.6-1.1) EF (Teich) 70.90% FS 39.10% EDV (Teich) 41.60 mL TAPSE 2.32 (<1.7) ESV (Teich) 12.10 mL LV Diastology E Decel Time 217.00 (160-240 msec) E/A Ratio 1.2 MED E' 9.20 (< 7 cm/sec) E'/MED E' Ratio 6.57 (>14) LAT E' 11.00 (<10 cm/sec) E/LAT E' Ratio 5.49 (>14) Aortic Valve AO Peak GR. 5.00 mmHg Mitral Valve MV E Max Nicanor. 60.00 (40-130 cm/s) MV A Velocity 51.00 (40-130 cm/s) E/A Ratio 1.18 MV Decel. Time 217.00 (160-240 ms) MV PHT 63.00 ms Pulmonary Valve PV Peak Velocity 125.00 (50-150 cm/s) Tricuspid Valve TR P. Velocity 356.00 cm/s RAP Estimate 10.00 mmHg RVSP 60.70 mmHg Left Ventricle Left atrium is mildly enlarged, left ventricle is normal size mild concentric left ventricular hypertrophy, estimated ejection fraction 55% with no regional wall motion abnormality, there is abnormal septal motion, diastolic parameters are inconclusive. Right Ventricle Right atrium and right ventricle are mildly enlarged with normal contractility. Aortic Valve Aortic valve is minimally thickened and fibrosed there is no aortic stenosis or aortic insufficiency. Mitral Valve Mitral valve is grossly normal, there is trace mitral regurgitation. Tricuspid Valve Tricuspid valve grossly normal, there is trace tricuspid regurgitation, tricuspid regurgitation jet velocity is inadequate for calculation of the right ventricular systolic pressure. Pulmonic Valve Pulmonic valve is poorly visualized. Great Vessels Aortic root is normal size. Inferior vena cava is poorly visualized. Pericardium No significant pericardial effusion noted. Conclusion 1. Biatrial enlargement, normal left ventricular size, mild concentric left ventricular hypertrophy, estimated ejection fraction 55% with no regional wall motion abnormality, there is abnormal septal motion. 2. Mildly enlarged right ventricle with normal contractility 3. Trace mitral and tricuspid regurgitation. 4. No significant pericardial effusion noted. 5. Inferior vena cava is poorly visualized. Electronically signed by : Steve Oneal MD 10/17/2021 10:44:39
--- NOTE | 2021-10-17 09:39 | EXP.PULM.CON ---
History of Present Illness History of present illness: Ms. Gonzalez is a 56-year-old female COPD on triple inhaler therapy recently treated as an outpatient basis for chronic broad antibiotics presents hospital worsening respiratory distress needing new oxygen requirements IV antibiotic and steroids and pulmonary was called for further management. Progressive worsening respiratory's for the last 3 to 4 days as with cough and productive phlegm. Denies any subjective fevers. Admits wheezing. [facility] Medical History Bronchitis Upper respiratory infection Social History (Updated 10/16/21 @ 14:40 by Sonya Guerra RN) Smoking Status: Current some day smoker tobacco type: e-cigarettes alcohol intake: never substance use type: denies use current occupational status: employed and other Travel in the last 8 weeks: None household members: spouse housing: house Review of Systems Constitutional Constitutional: Reports anorexia, Reports body ache(s), Reports chills, Denies excessive sweating and Denies snoring Eyes Eyes: Denies blind spots and Denies change in vision ENT Ears, Nose, Mouth, and Throat: Denies dry mouth and Denies dysphagia *Cardiovascular Cardiovascular: Reports dyspnea and Reports dyspnea on exertion *Respiratory Respiratory: Reports dyspnea, Reports dyspnea on exertion, Reports excessive phlegm production, Denies snoring and Reports wheezing *Gastrointestinal Gastrointestinal: Reports abdominal pain and Denies dysphagia *Musculoskeletal Musculoskeletal: Reports muscle weakness *Neurologic Neurologic: Denies localized weakness and Denies paresthesias Psychiatric Psychiatric: Denies homicidal ideation and Denies suicidal ideation Endocrine Endocrine: Denies excessive sweating and Denies polyphagia Hematologic/Lymphatic Hematologic/Lymphatic: Denies easy bleeding and Denies easy bruising Allergic/Immunologic Allergic/Immunologic: Reports wheezing Pulmonology Exam Inpatient Vital signs and Labs for Last 24 Hours: Temp Pulse Resp BP Pulse Ox 98.0 F 74 18 116/61 94 L 10/17/21 08:00 10/17/21 08:00 10/17/21 08:00 10/17/21 08:00 10/17/21 08:00 Laboratory Results - last 24 hr 10/16/21 10:10: WBC 11.6 H, RBC 5.45 H, Hgb 15.6, Hct 48.7 H, MCV 89.4, MCH 28.7, MCHC 32.1, RDW 13.1, Plt Count 339, MPV 7.0 L, Neut % (Auto) 73.6, Lymph % (Auto) 17.5, [place] % (Auto) 6.2, Eos % (Auto) 1.9, Baso % (Auto) 0.8, Neut # (Auto) 8.6 H, Lymph # (Auto) 2.0, [place] # (Auto) 0.7, Eos # (Auto) 0.2, Baso # (Auto) 0.1 10/16/21 10:10: Sodium 139, Potassium 4.4, Chloride 102, Carbon Dioxide 32 H, Anion Gap 9.4, BUN 13, Creatinine 0.80, Estimated Creat Clear 75, Estimated GFR 75, Est GFR ( Amer) 90, Glucose 83, Calcium 9.0, Total Bilirubin 0.3, AST 39 H, ALT 23, Alkaline Phosphatase 128 H, Troponin I < 0.01, Total Protein 7.6, Albumin 4.3, Globulin 3.3 H, Albumin/Globulin Ratio 1.3 10/16/21 10:10: Lactate 1.5 10/16/21 10:20: SARS-CoV-2 (PCR) Not detected, Influenza A Untype (PCR) Not detected, Influenza Type B (PCR) Not detected I & O for Labs for Last 24 Hours: Intake & Output 10/14/21 10/15/21 10/16/21 10/17/21 23:59 23:59 23:59 23:59 Intake Total 360 / 360 Output Total 0 / 0 0 / 0 Balance 360 / 360 0 / 0 Weight 128 lb 5 oz 128 lb 9 oz Head: Present normocephalic and atraumatic ENT: Present normal exam, normal oropharynx and mucous membranes moist Neck: Present normal inspection and full ROM Respiratory: Present prolonged expiratory phase, wheezes and crackles; Absent patient mechanically ventilated or able to speak in complete sentences Cardiac: Present S1/S2, Tachycardia and radial pulses present GI: Present soft and distention; Absent tenderness or guarding Rectal (female): Present deferred (female): Present deferred Skin: Present intact; Absent cyanosis or jaundice Neuro: Present alert, awake and oriented x 3 Extremities: Present normal inspection; A
[2021-10-17 10:15] VITALS: PULSE 76; PULSE 77; O2SAT 92
--- NOTE | 2021-10-17 10:48 | PC.NURSE ---
pt had 1 unmeasured void.
--- NOTE | 2021-10-17 13:08 | EXP.CARD.CON ---
History of Present Illness History of Present Illness Consult date: 10/17/21 Requesting physician: Hiro Pinto Consult reason: chest pain and shortness of breath Chief complaint: chest tightness, COPD exacerbation Additional Medical History:: 1. Tobacco use, discontinued 1 month ago 2. 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 No coronary artery calcifications noted. History of present illness: 56-year-old white female admitted for COPD exacerbation was noted to have some chest tightness associated with her COPD exacerbation. Troponin have returned normal during this admission. Echocardiogram shows preserved ejection fraction with no significant valve disease. She has some mild RV enlargement but with normal contractility. Cardiology was asked to see the patient for further evaluation. Recently quit smoking a month ago Nondiabetic No history of hypertension or hyperlipidemia [facility] Medical History (Updated 10/17/21 @ 13:33 by NIXON Mccoy) Bronchitis Upper respiratory infection Social History (Updated 10/16/21 @ 14:40 by Sonya Guerra RN) Smoking Status: Current some day smoker tobacco type: e-cigarettes alcohol intake: never substance use type: denies use current occupational status: employed and other Travel in the last 8 weeks: None household members: spouse housing: house Review of Systems Review of Systems Review of systems:: pertinent systems reviewed and negative unless documented below *Cardiovascular Cardiovascular: Reports dyspnea and Reports dyspnea on exertion *Respiratory Respiratory: Reports dyspnea and Reports dyspnea on exertion *Neurologic Neurologic: Reports system reviewed and no additional complaints, except as documented, Denies localized weakness and Denies paresthesias Exam Data for Last 24 hours Vital signs and Labs for Last 24 Hours: Temp Pulse Resp BP Pulse Ox 98.0 F 77 18 116/61 92 L 10/17/21 08:00 10/17/21 10:15 10/17/21 08:00 10/17/21 08:00 10/17/21 10:15 I & O for Last 24 hours: Intake & Output 10/15/21 10/16/21 10/17/21 10/18/21 11:59 11:59 11:59 11:59 Intake Total 360 / 360 Output Total 0 / 0 Balance 360 / 360 Weight 130 lb 128 lb 9 oz Constitutional Constitutional: no acute distress Comments: Conversational dyspnea at 4-5 words. Currently wearing oxygen by nasal cannula *Routine Respiratory Exam Respiratory: Present decreased breath sounds and diminished air movement *Routine Cardiovascular Exam Cardiovascular: Present RRR, Normal S1 and Normal S2; Absent murmur, gallop or rubs *Routine Extremities Exam Extremities: Absent edema *Routine Neurological Exam Neurological: Present alert, oriented X3 and CN II-XII intact Meds Home Medications and Allergies Home Medications Medication Instructions Recorded Confirmed Type cetirizine 10 mg tablet 10 mg PO DAILY Allergy symptoms 10/16/21 10/16/21 History fluticasone propionate 50 1 spray intranasal QDAY COPD 10/16/21 10/16/21 History mcg/actuation nasal spray,suspension (Allergy Relief (fluticasone)) hydrocodone 5 mg-acetaminophen 325 1 tab PO TID Pain 10/16/21 10/16/21 History mg tablet tiotropium bromide 18 mcg capsule 1 cap inhalation DAILY COPD 10/16/21 10/16/21 History with inhalation device (Spiriva with HandiHaler) Advair Diskus 250 mcg-50 mcg/dose 1 inh inhalation BID 90 days #180 10/17/21 Rx powder for inhalation (fluticasone ea propion-salmeterol) albuterol sulfate 90 mcg/actuation 2 inh inhalation QID PRN shortness 10/17/21 Rx aerosol inhaler of breath or wheezing 90 days #8.5 grams ipratropium 0.5 mg-albuterol 3 mg 3 ml inhalation QID PRN shortness 10/17/21 Rx (2.5 mg base)/3 mL nebulization of breath or wheezing 90 days #360 soln mL tiotropium bromide 18 mcg capsule 1 cap inhalation DAILY 90 days #90 10/17/21 Rx with inhalation device (Spiriva puffs with HandiHaler) New Prescriptions to Sta
--- NOTE | 2021-10-17 14:23 | PC.NURSE ---
rounded on patient. noted iv had come out, and patient requesting to not be restuck at this time. plans to take a shower. patient also eager to go home, plans for possible discharge this shift. no questions or concerns noted. she was sitting up comfortable in bed visiting with family. encouraged them to ring out as needed.
[2021-10-17 14:59] LABS: Chol/HDL Ratio 4.2 (1-3.5); Cholesterol 203 mg/dl (140-200); HDL Cholesterol 48 mg/dl (40-60); Triglycerides 89 mg/dl (30-150); VLDL Cholesterol 18 mg/dL (0-40)
[2021-10-17 15:09] LABS: Direct LDL Cholesterol 116.64 mg/dL (100-129)
--- NOTE | 2021-10-17 15:27 | EXP.DC.SUM ---
General Admission date:: 10/16/21 Discharge date: 10/17/21 HPI HPI HPI: HPI narrative: She has a history of COPD.? She got sick last week with cough and fever.? Treated with an antibiotic, Zithromax.? She had a negative COVID home test.? She got better for a couple of days, but since then has been short of breath.? No longer has a fever.? Still coughing, she thinks sputum might be white to plata.? No chest pain.? She tried her son's nebulizer without improvement.? She has inhalers at home including an albuterol rescue inhaler which she has been using without improvement.? She has not recently been on steroids.? She is not on oxygen at home.? She is a former smoker, quit 1 month ago. Hospital Course Hospital Course Hospital Course: pt was admitted and treated with ivf and abx with pul treatment - pt was seen by pul-Assessment and Plan *Assessment and plan (1) Acute exacerbation of chronic obstructive pulmonary disease: ?Status:?Acute ?Category:?Medical ?Code(s): J44.1 - Chronic obstructive pulmonary disease with (acute) exacerbation (2) Acute respiratory failure with hypoxia: ?Status:?Acute ?Category:?Medical ?Code(s): J96.01 - Acute respiratory failure with hypoxia Plan #Acute COPD exacerbation: History of COPD triple inhaler therapy present with COPD exacerbation Status post outpatient treatment with azithromycin.? Chest x-ray on admission personally reviewed emphysema, bilateral clear lung vilchis with no acute airspace disease Labs on admission personally reviewed, mild leukocytosis neutrophil predominant. COVID-19 PCR negative On 2 L nasal cannula, new oxygen requirements.? Not using oxygen at baseline Receiving levofloxacin along with duo nebs and methylprednisolone. Past medical social and surgical hisotyr reviewed Admits improvement in her symptoms.? Receiving IV antibiotics and steroids.? Auscultation bilateral expiratory wheeze. Plan: -Evaluate the need for oxygen therapy prior to discharge -Continue levofloxacin 750mg daily to complete a 5-day course -Wean steroids to prednisone 40 mg x 5 days upon discharge -Continue home inhalers including Advair and Spiriva along with continuation of DuoNebs every 6 hours on as-needed basis #Thank for involving pulmonary in this patient care will follow the patient in pulmonary clinic 2 weeks. and was seen by card-assessment and Plan *Assessment and plan (1) COPD with acute bronchitis: ?Status:?Acute ?Category:?Medical ?Code(s): J44.0 - Chronic obstructive pulmonary disease with (acute) lower respiratory infection; J20.9 - Acute bronchitis, unspecified (2) Ex-smoker for less than 1 year: ?Status:?Acute ?Category:?Social Hx ?Code(s): Z78.9 - Other specified health status (3) Hyperlipidemia: ?Status:?Acute ?Category:?Medical ?Code(s): E78.5 - Hyperlipidemia, unspecified Assessment and plan all Dx Assessment and Plan All Dx:: 1.? Chest tightness related to COPD exacerbation.? Troponin normal with echocardiogram showing normal LV function.? Patient does not have exertional chest discomfort and no appreciable coronary calcification on chest CT from November 2020, therefore would not recommend any further evaluation at this time. 2.? COPD with history of recent smoking cessation.? Defer to PCP and pulmonary. Stable from a cardiac standpoint for discharge. No additional recommendations. Follow-up in our office as needed. pt will see pcp next week Exam Data for Last 24 hours Vital signs and Labs for Last 24 Hours: Temp Pulse Resp BP Pulse Ox 98.0 F 77 18 116/61 92 L 10/17/21 08:00 10/17/21 10:15 10/17/21 08:00 10/17/21 08:00 10/17/21 10:15 Laboratory Results - last 24 hr 10/16/21 10:10: Triglycerides 89, Cholesterol 203 H, LDL Cholesterol Direct 116.64, VLDL Cholesterol 18, HDL Cholesterol 48, Cholesterol/HDL Ratio 4.2 H I & O for Last 24 hours: Intake & Output 10/15/21 10/16/21 09
--- NOTE | 2021-10-17 15:49 | PC.NURSE ---
pt is 87% on room air
[2021-10-17 15:50] VITALS: O2SAT 87
--- NOTE | 2021-10-17 15:54 | CARE MANAGER ---
Patient will need home oxygen, 87% on room air. Home oxygen order sent to [facility] per patient request. They will deliver portable.
--- NOTE | 2021-10-20 12:56 | CARE MANAGER ---
Spoke with patient for post-discharge phone interview, she states that she is doing well and has no issues at this time.
== END 2021-10-17 16:50 | disposition home or self-care (01) ==
LOC: UTC 09:48 → ER 09:57 → 2ND 14:44
PROVIDERS: Physician Assistant; Admitting Provider Family Medicine; Emergency Provider Emergency Medicine; PCP Emergency Medicine; Visit Provider Emergency Medicine
DX: J96.01 Acute respiratory failure with hypoxia (principal); F17.210 Nicotine dependence, cigarettes, uncomplicated; E78.5 Hyperlipidemia, unspecified; J44.1 Chronic obstructive pulmonary disease with (acute) exacerbation
CPT/HCPCS: 71046; 80053; 80061; 83605; 84484; 85025; 87040; 93005; 93306; 94640; 94760; 94761; 99285; C9803; G0378; J1956; U0003; U0005

== ENCOUNTER → 2022-01-28 12:59 | Outpatient (CLI) | payer OTHER, SELFPAY ==
[2022-01-28 13:36] VITALS: PULSE 80
== END ==
PROVIDERS: PCP Emergency Medicine; Visit Provider Internal Medicine Pulmonary Disease
DX: R06.09 Other forms of dyspnea (principal)
CPT/HCPCS: 94060; 94640; 94762

== ENCOUNTER → 2022-02-02 14:10 | Outpatient (CLI) | payer OTHER, SELFPAY ==
[2022-02-02 16:34] LABS: Adenovirus,PCR Not Detected (NotDetected); Bordetella Pertussis Not Detected (NotDetected); Chlamydophila Pneumoniae, PCR Not Detected (NotDetected); Coronavirus 19, PCR Not Detected (NotDetected); Coronavirus 229E Not Detected (NotDetected); Coronavirus NL63 Not Detected (NotDetected); Coronavirus OC43 Not Detected (NotDetected); Coronovirus HKU1,PCR Not Detected (NotDetected); Human Metapneumovirus Not Detected (NotDetected); Influenza A, PCR Not Detected (NotDetected); Influenza AH1, 2009 Not Detected (NotDetected); Influenza AH1, PCR Not Detected (NotDetected); Influenza AH3,PCR Not Detected (NotDetected); Influenza B, PCR Not Detected (NotDetected); Mycoplasma Pneumoniae, PCR Not Detected (NotDetected); Parainfluenza 1, PCR Not Detected (NotDetected); Parainfluenza 2, PCR Not Detected (NotDetected); Parainfluenza 3, PCR Not Detected (NotDetected); Parainfluenza 4, PCR Not Detected (NotDetected); Respiratory Syncytial Virus Not Detected (NotDetected); Rhinovirus/Enterovirus Not Detected (NotDetected)
== END ==
PROVIDERS: PCP Emergency Medicine; Visit Provider Emergency Medicine
DX: R05.9 Cough, unspecified (principal); R50.9 Fever, unspecified; R52 Pain, unspecified
CPT/HCPCS: 87581; 87632; 87798; C9803; U0003; U0005

== ENCOUNTER → 2022-04-07 10:50 | Outpatient (CLI) | payer OTHER, SELFPAY ==
[2022-04-07 14:52] LABS: Amphetamine/Metha Screen,Urine Negative ng/ml (<1000); Barbiturates Screen,Urine Negative ng/ml (<200)
[2022-04-07 14:53] LABS: Benzodiazepines Screen,Urine Negative ng/ml (<200); Cannabinoid Screen,Urine Positive ng/ml (<50)
[2022-04-07 14:54] LABS: Cocaine Screen,Urine Negative ng/ml (<300)
[2022-04-07 14:55] LABS: Methadone Screen,Urine Negative ng/ml (<300); Opiate Screen,Urine Negative ng/ml (<300)
[2022-04-07 14:56] LABS: Phencyclidine Screen,Urine Negative ng/ml (<25)
[2022-04-07 15:14] LABS: Basophils # 0.1 K/mm3 (0-0.2); Basophils % 1.5 % (0.1-2.0); Eosinophils # 0.2 K/mm3 (0.0-0.4); Eosinophils % 2.5 % (0.1-12.0); Hematocrit 46.1 % (37.0-47.0); Hemoglobin 14.8 g/dL (12.2-16.2); Lymphocytes # 2.1 K/mm3 (0.7-4.5); Lymphocytes % 28.1 % (10-50); Mean Corpuscular HGB Conc 32.2 g/dL (31.8-35.4); Mean Corpuscular Volume 90.2 fl (81-99); Mean Platelet Volume 7.8 fl (7.4-10.4); Monocytes # 0.4 K/mm3 (0.1-1.0); Monocytes % 5.2 % (1.7-9.3); Neutrophils # 4.8 K/mm3 (1.8-7.8); Neutrophils % 62.7 % (37.0-80.0); Platelet Count 369 K/mm3 (142-424); Red Blood Count 5.11 M/mm3 (4.20-5.40); Red Cell Distribution Width 14.8 % (11.5-17.5); White Blood Count 7.6 K/mm3 (4.8-10.8)
[2022-04-07 15:24] LABS: Alanine Aminotransferase 18 U/L (12-78); Albumin Level 4.2 g/dl (3.5-5.0); Albumin/Globulin Ratio 1.7 (1.1-1.8); Alkaline Phosphatase 97 U/L (38-126); Anion Gap 5.8 mEq/L (5-15); Aspartate Amino Transferase 28 U/L (14-36); Bilirubin,Total 0.6 mg/dl (0.2-1.3); Blood Urea Nitrogen 14 mg/dl (7-17); Calcium 8.9 mg/dl (8.4-10.2); Carbon Dioxide 31 mmol/L (22.0-30.0); Chloride 105 mmol/L (98-107); Estimated Glomerular Filt Rate 74 ml/min (>60); GFR (African American) 90 ML/MIN (>60); Globulin 2.5 g/dL (1.3-3.2); Glucose 81 mg/dl (74-100); Potassium 4.8 mmoL/L (3.5-5.1); Sodium 137 mmol/L (136-145); Total Protein,Serum 6.7 g/dl (6.3-8.2)
[2022-04-07 15:41] LABS: Free T4 (Free Thyroxine) 1.26 ng/dl (0.78-2.19)
[2022-04-07 15:56] LABS: Thyroid Stimulating Hormone 1.82 uIU/mL (0.465-4.68)
[2022-04-07 16:15] LABS: Vitamin B12 791 pg/mL (239-931)
== END ==
PROVIDERS: PCP Emergency Medicine; Visit Provider Emergency Medicine
DX: R53.83 Other fatigue (principal); Z79.899 Other long term (current) drug therapy
CPT/HCPCS: 80053; 80305; 82607; 84207; 84439; 84443; 85025

== ENCOUNTER → 2022-04-09 10:22 | Outpatient (CLI) | payer OTHER, SELFPAY ==
[2022-04-09 10:52] LABS: 25-OH Vitamin D, Total 22.1 ng/mL (30-100)
== END ==
PROVIDERS: PCP Emergency Medicine; Visit Provider Emergency Medicine
DX: E55.9 Vitamin D deficiency, unspecified (principal)
CPT/HCPCS: 82306

== ENCOUNTER → 2022-07-28 14:46 | Outpatient (CLI) | payer OTHER, SELFPAY ==
[2022-07-28 13:12] LABS: Amphetamine/Metha Screen,Urine Negative ng/ml (<1000); Barbiturates Screen,Urine Negative ng/ml (<200)
[2022-07-28 13:14] LABS: Benzodiazepines Screen,Urine Negative ng/ml (<200)
[2022-07-28 13:15] LABS: Cannabinoid Screen,Urine Positive ng/ml (<50)
[2022-07-28 13:16] LABS: Cocaine Screen,Urine Negative ng/ml (<300); Methadone Screen,Urine Negative ng/ml (<300)
[2022-07-28 13:17] LABS: Opiate Screen,Urine Positive ng/ml (<300); Phencyclidine Screen,Urine Negative ng/ml (<25)
== END ==
PROVIDERS: PCP Emergency Medicine; Visit Provider Emergency Medicine
DX: Z79.899 Other long term (current) drug therapy (principal)
CPT/HCPCS: 80305

== ENCOUNTER → 2022-09-25 14:30 | Outpatient (CLI) | payer OTHER, SELFPAY ==
[2022-09-25 17:04] LABS: Amphetamine/Metha Screen,Urine Negative ng/ml (<1000)
[2022-09-25 17:05] LABS: Barbiturates Screen,Urine Negative ng/ml (<200)
[2022-09-25 17:06] LABS: Benzodiazepines Screen,Urine Negative ng/ml (<200); Cannabinoid Screen,Urine Positive ng/ml (<50)
[2022-09-25 17:07] LABS: Cocaine Screen,Urine Negative ng/ml (<300); Methadone Screen,Urine Negative ng/ml (<300)
[2022-09-25 17:08] LABS: Opiate Screen,Urine Negative ng/ml (<300)
[2022-09-25 17:09] LABS: Phencyclidine Screen,Urine Negative ng/ml (<25)
== END ==
PROVIDERS: PCP Emergency Medicine; Visit Provider Emergency Medicine
DX: M79.2 Neuralgia and neuritis, unspecified (principal)
CPT/HCPCS: 80305

== ENCOUNTER → 2023-01-21 23:57 | Outpatient (CLI) | payer OTHER, SELFPAY ==
[2023-01-21 20:02] LABS: Amphetamine/Metha Screen,Urine Negative ng/ml (<1000)
[2023-01-21 20:03] LABS: Cannabinoid Screen,Urine Positive ng/ml (<50)
[2023-01-21 20:04] LABS: Barbiturates Screen,Urine Negative ng/ml (<200)
[2023-01-21 20:05] LABS: Opiate Screen,Urine Positive ng/ml (<300)
[2023-01-21 20:06] LABS: Cocaine Screen,Urine Negative ng/ml (<300)
[2023-01-21 20:07] LABS: Methadone Screen,Urine Negative ng/ml (<300)
[2023-01-21 20:08] LABS: Phencyclidine Screen,Urine Negative ng/ml (<25)
[2023-01-21 20:29] LABS: Benzodiazepines Screen,Urine Negative ng/ml (<200)
== END ==
PROVIDERS: PCP Family Medicine; Visit Provider Family Medicine
DX: Z79.899 Other long term (current) drug therapy (principal)
CPT/HCPCS: 80305

== ENCOUNTER 2023-02-07 14:06 | Emergency (ER) | payer OTHER, SELFPAY ==
[2023-02-07 14:45] VITALS: BP 118/93; PULSE 100; RESP 18; TEMP 36.8; O2SAT 92; BMI 21.7
--- NOTE | 2023-02-07 14:46 | EXP.UTC ---
Discharge Plan Disposition Patient Disposition: Home, Self-Care Condition: Good Prescriptions Prescriptions: New prednisone 10 mg tablet 10 mg PO DIRECTED 9 Days Qty: 21 0RF Rx Instructions: Take 4 tablets daily for 3 days, then take 2 tablets daily for 3 days, then take 1 tablet daily for 3 days, then stop. benzonatate [benzonatate] 100 mg capsule 100 mg PO TIDP PRN (Reason: Cough) Qty: 30 0RF amoxicillin-pot clavulanate 875-125 mg Tablet 1 tab PO Q12H Qty: 20 0RF guaifenesin [Mucinex] 600 mg tablet extended release 12hr 600 - 1,200 mg PO BIDP PRN (Reason: Congestion) Qty: 30 0RF No Action fluticasone propion-salmeterol [Advair Diskus] 250-50 mcg/dose blister with device 1 inh INHALATION BID 90 Days Qty: 180 3RF albuterol sulfate 90 mcg/actuation HFA aerosol inhaler 2 inh inhalation QID PRN (Reason: shortness of breath or wheezing) 90 Days Qty: 8.5 2RF bupropion HCl [Wellbutrin XL] 150 mg tablet extended release 24 hr 150 mg PO DAILY Qty: 90 3RF cetirizine 10 mg tablet See Rx Instructions .ROUTE .COMPLEX Qty: 90 0RF Dose Instruction: TAKE 1 TABLET BY MOUTH ONCE DAILY Rx Instructions: TAKE 1 TABLET BY MOUTH ONCE DAILY cholecalciferol (vitamin D3) 1,250 mcg (50,000 unit) capsule 1,250 mcg PO WEEKLY Qty: 14 3RF clobetasol 0.05 % cream 1 applic TOPICAL BID Qty: 60 4RF fexofenadine [Allergy Relief (fexofenadine)] 180 mg tablet 180 mg PO DAILY Qty: 90 2RF fluticasone propionate [Allergy Relief (fluticasone)] 50 mcg/actuation spray,suspension 1 spray INTRANASAL QDAY Qty: 16 0RF Rx Instructions: administer into each nostril ipratropium-albuterol 0.5 mg-3 mg(2.5 mg base)/3 mL solution for nebulization 3 ml inhalation QID PRN (Reason: shortness of breath or wheezing) 90 Days Qty: 360 3RF hydrocodone-acetaminophen 5-325 mg tablet 1 tab PO TID Qty: 90 0RF prednisone 20 mg tablet 20 mg PO BID 5 Days Qty: 10 0RF azithromycin 250 mg tablet See Rx Instructions PO .COMPLEX Qty: 6 0RF Rx Instructions: For 250 mg dose pack: take 500 mg today (day 1), then 250 mg for 4 days (days 2-5) orally; benzonatate 100 mg capsule 100 mg PO TID PRN (Reason: cough) Qty: 30 0RF Referrals Follow up/Referrals: Junaid Ferrera APRN [Primary Care Provider] - See instructions Activity Restrictions/Add. Instructions Additional Instructions/Restrictions: Drink plenty of fluids. Take tylenol or ibuprofen for pain or fever. Stop the medications that were prescibed before for your current illness. (azithromycin, prednisone) Start the new medications that were prescribed today. Follow up with your regular doctor. GO TO THE ER FOR ANY WORSENING SYMPTOMS Don't start the oral steroids until tomorrow, since you had the shot here today. Clinical Impressions Clinical Impression: COPD exacerbation Instructions Patient Instructions: DI for Chronic Obstructive Pulmonary Disease, Ceftriaxone Injection, Be a Partner in Your COPD Care Discharge ED Provider: Yobani Schreiber [facility] General Stated complaint: cough,SOA,tired Time Seen by Provider: 02/07/23 14:46 History of Present Illness Provider Complaint: She states that for the past 2 weeks she has had worsening chest congestion. She has a history of copd. Related Data Previous Rx's Medication Instructions Recorded Advair Diskus 250 mcg-50 mcg/dose 1 inh inhalation BID 90 days #180 01/21/23 powder for inhalation (fluticasone ea propion-salmeterol) albuterol sulfate 90 mcg/actuation 2 inh inhalation QID PRN shortness 01/21/23 aerosol inhaler of breath or wheezing 90 days #8.5 grams bupropion HCl 150 mg 24 hr tablet, 150 mg PO DAILY #90 tabs 01/21/23 extended release (Wellbutrin XL) cetirizine 10 mg tablet See Rx Instructions .Route 01/21/23 .COMPLEX #90 tabs cholecalciferol (vitamin D3) 1,250 1,250 mcg PO WEEKLY vitamin d 01/21/23 mcg (50,000 unit) capsule deficiency #14 caps clobetasol 0.05 % topical cream 1 applic topical BID #60 grams 01/21/23 fexofenadine 180 mg tablet 180 mg PO DAILY #90 tabs 01/21/23 (Allergy Relief (fexofenadine)) fluticasone propionate 50 1 spray intranasal QDAY COPD #16 01/21/23 mcg/actuation nasal grams spray,suspension (Allergy Relief (fluticasone)) ipratropium 0.5 mg-albuterol 3 mg 3 ml inhalation QID PRN shortness 01/21/23 (2.5 mg base)/3 mL nebulization of breath or wheezing 90 days #360 soln mL hydrocodone 5 mg-acetaminophen 325 1 tab PO TID Pain #90 tabs 01/22/23 mg tablet azithromycin 250 mg tablet See Rx Instructions PO .COMPLEX #6 02/04/23 tabs benzonatate 100 mg capsule 100 mg PO TID PRN cough #30 caps 02/04/23 prednisone 20 mg tablet 20 mg PO BID 5 days #10 tabs 02/04/23 amoxicillin 875 mg-potassium 1 tab PO Q12H #20 tabs 02/07/23 clavulanate 125 mg tablet benzonatate 100 mg capsule 100 mg PO TIDP PRN Cough #30 caps 02/07/23 guaifenesin 600 mg tablet, 600 - 1,200 mg PO BIDP PRN 02/07/23 extended release 12 hr (Mucinex) Congestion #30 tabs prednisone 10 mg tablet 10 mg PO DIRECTED 9 days #21 02/07/23 tabs Allergies Allergy/AdvReac Type Severity Reaction Status Date / Time doxycycline [DOXYCYCLINE] Allergy Unknown Verified 02/07/23 14:55 [facility] Disclaimer: The information contained in this section may have been updated after the patient was seen, as this information can be updated by other users. Medical History Acute bronchitis Acute exacerbation of chronic obstructive pulmonary disease Acute respiratory failure with hypoxia Body aches Bronchitis COPD (chronic obstructive pulmonary disease) COPD with acute bronchitis Cough Dyspnea on exertion Ex-smoker for less than 1 year Fatigue Fever Lesion of vulva Multiple pulmonary nodules Tobacco abuse Tobacco abuse counseling Tobacco use Upper respiratory infection Surgical History History of tonsillectomy Family History Mother Hypertension Social History Smoking Status: Former smoker tobacco type: e-cigarettes how long ago did patient quit smokin10/02/2021 alcohol intake: never substance use type: denies use current occupational status: employed and other Travel in the last 8 weeks: None household members: spouse housing: house ROS Obtained: Yes All systems reviewed & no additional complaints except as documented Constitutional Constitutional: Reports poor appetite Eyes Eyes: Reports system reviewed and no additional complaints, except as documented ENT Ears, Nose, Mouth, and Throat: Reports as per HPI Cardiovascular Cardiovascular: Reports system reviewed and no additional complaints, except as documented and Denies chest pain Respiratory Respiratory: Reports shortness of breath, Reports chest congestion, Reports cough, Denies stridor and Reports wheezing Gastrointestinal Gastrointestingal: Reports system reviewed and no additional complaints, except as documented; Denies abdominal pain, diarrhea or vomiting Musculoskeletal Musculoskeletal: Reports system reviewed and no additional complaints, except as documented and Denies arthralgias Integumentary/Breasts Skin/Breast: Reports system reviewed and no additional complaints, except as documented and Denies rash Neurologic Neurologic: Denies paresthesias Allergic/Immunologic Allergic/Immunologic: Reports wheezing Physical Exam General General appearance: alert and in no apparent distress Head Head exam: atraumatic, normocephalic and normal inspection Eye Eye exam: Present normal appearance, PERRL and EOMI ENT ENT exam: Present normal exam, normal oropharynx, mucous membranes moist, TM's normal bilaterally and normal external ear exam Neck Neck exam: Present normal inspection, full ROM and trachea midline; Absent meningismus or lymphadenopathy Chest Chest inspection: Present normal inspection and symmetric chest wall rise; Absent tenderness Respiratory Respiratory exam: Present normal lung sounds bilaterally; Absent respiratory distress Cardiovascular Cardiovascular exam: Present regular rate and normal rhythm; Absent JVD Abdominal Exam Abdominal exam: Present soft and normal bowel sounds; Absent distention, tenderness or guarding Extremities Exam Extremities exam: Present normal inspection, full ROM and normal capillary refill; Absent calf tenderness Back Exam Back exam: Present normal inspection; Absent tenderness Neurological Exam Neurological exam: Present alert and oriented X3 Psychiatric Psychiatric exam: Present normal affect and normal mood Skin Skin exam: Present warm, dry, intact and normal color Lymphatic Lymphatic Findings: no adenopathy Medical Decision Making Medical Records Medical records reviewed: No I reviewed the patient's medical records. Franc Inquiry Pt receiving controlled substance: No Lab Data Lab results reviewed: Yes I reviewed the patient's lab results. Radiology Data #1: Image(s): Chest Image Reviewed: Yes I reviewed the patient's radiology image and Yes I have reviewed radiologist's interpretation Preliminary Findings: Abnormal PROCEDURE INFORMATION: Exam: XR Chest Exam date and time: 02/07/2023 2:48 PM Age: 58 years old Clinical indication: Cough and shortness of breath; Additional info: Cough/sob TECHNIQUE: Imaging protocol: Radiologic exam of the chest. Views: 2 views. COMPARISON: CR XR CHEST 2V 10/16/2021 10:26 AM FINDINGS: Lungs: Hyperlucent changes are demonstrated. Increase in the lung volumes is demonstrated. Regions of peribronchial thickening and bibasilar parenchymal scarring. Findings chronic. Could not exclude superimposed acute process. Pleural spaces: Unremarkable. No pleural effusion. No pneumothorax. Heart/Mediastinum: Unremarkable. No cardiomegaly. Diaphragm: There is flattening of the hemidiaphragms. Bones/joints: Unremarkable. IMPRESSION: 1. Findings compatible chronic obstructive pulmonary disease. 2. Bibasilar fibrosis, bronchiectasis and peribronchial thickening. Findings chronic. Could not exclude superimposed acute process.
--- NOTE | 2023-02-07 14:49 | XR_ITS ---
PROCEDURE INFORMATION: Exam: XR Chest Exam date and time: 02/07/2023 2:48 PM Age: 58 years old Clinical indication: Cough and shortness of breath; Additional info: Cough/sob TECHNIQUE: Imaging protocol: Radiologic exam of the chest. Views: 2 views. COMPARISON: CR XR CHEST 2V 10/16/2021 10:26 AM FINDINGS: Lungs: Hyperlucent changes are demonstrated. Increase in the lung volumes is demonstrated. Regions of peribronchial thickening and bibasilar parenchymal scarring. Findings chronic. Could not exclude superimposed acute process. Pleural spaces: Unremarkable. No pleural effusion. No pneumothorax. Heart/Mediastinum: Unremarkable. No cardiomegaly. Diaphragm: There is flattening of the hemidiaphragms. Bones/joints: Unremarkable. IMPRESSION: 1. Findings compatible chronic obstructive pulmonary disease. 2. Bibasilar fibrosis, bronchiectasis and peribronchial thickening. Findings chronic. Could not exclude superimposed acute process.
[2023-02-07] MEDS: DEXAMETHASONE 4MG/ML 1ML VIAL 8 MG IM (15:17)
[2023-02-07] MEDS: cefTRIAXone 1GM VIAL 1 GM IM (15:17)
[2023-02-07] MEDS: LIDOCAINE 1% 5ML PF VIAL IM (15:17)
[2023-02-07 15:52] VITALS: BP 118/93; PULSE 100; RESP 18; TEMP 36.8; O2SAT 92
== END 2023-02-07 15:52 | disposition home or self-care (01) ==
PROVIDERS: Emergency Provider Nurse Practitioner Family; PCP Nurse Practitioner Family
DX: J44.1 Chronic obstructive pulmonary disease with (acute) exacerbation (principal); R06.02 Shortness of breath; R05.9 Cough, unspecified; R09.89 Other specified symptoms and signs involving the circulatory and respiratory systems; R53.83 Other fatigue; Z87.891 Personal history of nicotine dependence
CPT/HCPCS: 71046; 87635; 96372; 99204; 99212; G0463; J0696

== ENCOUNTER 2023-02-08 15:52 | Observation (INO) | payer OTHER, SELFPAY ==
[2023-02-08] VITALS (11 sets, daily range): BP systolic 122–148; BP diastolic 65–97; PULSE 92–111; RESP 20–22; TEMP 36.7–36.9; O2SAT 87–97; BMI 28.0; BMI 22.4
--- NOTE | 2023-02-08 16:21 | PC.NURSE ---
[facility] [employer] [facility] walked pt in room o2 sat 91 on 2 liters turned o2 off pt sats were 83 on room air
--- NOTE | 2023-02-08 16:26 | ECG_ITS ---
APPROVED REPORT Exam: Resting ECG HR:90 bpm ECG Measurements Heart Rate 90 AXES OR 96 P 79 QRSd 90 QRS 85 QT 322 T 74 QTc 369 Conclusion SINUS RHYTHM WITH SHORT OR INTERVAL BORDERLINE ECG UNCONFIRMED REPORT Electronically signed by : Aguilar Moreno MD 02/11/2023 20:42:12
[2023-02-08 16:31] LABS: Coronavirus 19, PCR Not Detected (NotDetected); Influenza A, PCR Not Detected (NotDetected); Influenza B, PCR Not Detected (NotDetected)
--- NOTE | 2023-02-08 17:06 | XR_ITS ---
PROCEDURE INFORMATION: Exam: XR Chest Exam date and time: 02/08/2023 5:50 PM Age: 58 years old Clinical indication: Cough; Additional info: Cough, copd TECHNIQUE: Imaging protocol: Radiologic exam of the chest. Views: 2 views. COMPARISON: CR XR CHEST 2V 02/07/2023 2:48 PM FINDINGS: Lungs: Lung hyperinflation. No airspace consolidation. Pleural spaces: Unremarkable. No pleural effusion. No pneumothorax. Heart/Mediastinum: Unremarkable. No cardiomegaly. Bones/joints: Unremarkable. IMPRESSION: No acute findings.
--- NOTE | 2023-02-08 17:08 | [facility].EDCP ---
Discharge Plan Disposition Patient Disposition: Admitted Chief Complaint: Shortness of Breath/Dyspnea Prescriptions Prescriptions: No Action fluticasone propion-salmeterol [Advair Diskus] 250-50 mcg/dose blister with device 1 inh INHALATION BID 90 Days Qty: 180 3RF albuterol sulfate 90 mcg/actuation HFA aerosol inhaler 2 inh inhalation QID PRN (Reason: shortness of breath or wheezing) 90 Days Qty: 8.5 2RF bupropion HCl [Wellbutrin XL] 150 mg tablet extended release 24 hr 150 mg PO DAILY Qty: 90 3RF cetirizine 10 mg tablet See Rx Instructions .ROUTE .COMPLEX Qty: 90 0RF Dose Instruction: TAKE 1 TABLET BY MOUTH ONCE DAILY Rx Instructions: TAKE 1 TABLET BY MOUTH ONCE DAILY cholecalciferol (vitamin D3) 1,250 mcg (50,000 unit) capsule 1,250 mcg PO WEEKLY Qty: 14 3RF clobetasol 0.05 % cream 1 applic TOPICAL BID Qty: 60 4RF fexofenadine [Allergy Relief (fexofenadine)] 180 mg tablet 180 mg PO DAILY Qty: 90 2RF fluticasone propionate [Allergy Relief (fluticasone)] 50 mcg/actuation spray,suspension 1 spray INTRANASAL QDAY Qty: 16 0RF Rx Instructions: administer into each nostril ipratropium-albuterol 0.5 mg-3 mg(2.5 mg base)/3 mL solution for nebulization 3 ml inhalation QID PRN (Reason: shortness of breath or wheezing) 90 Days Qty: 360 3RF hydrocodone-acetaminophen 5-325 mg tablet 1 tab PO TID Qty: 90 0RF prednisone 20 mg tablet 20 mg PO BID 5 Days Qty: 10 0RF azithromycin 250 mg tablet See Rx Instructions PO .COMPLEX Qty: 6 0RF Rx Instructions: For 250 mg dose pack: take 500 mg today (day 1), then 250 mg for 4 days (days 2-5) orally; benzonatate 100 mg capsule 100 mg PO TID PRN (Reason: cough) Qty: 30 0RF prednisone 10 mg tablet 10 mg PO DIRECTED 9 Days Qty: 21 0RF Rx Instructions: Take 4 tablets daily for 3 days, then take 2 tablets daily for 3 days, then take 1 tablet daily for 3 days, then stop. benzonatate [benzonatate] 100 mg capsule 100 mg PO TIDP PRN (Reason: Cough) Qty: 30 0RF amoxicillin-pot clavulanate 875-125 mg Tablet 1 tab PO Q12H Qty: 20 0RF guaifenesin [Mucinex] 600 mg tablet extended release 12hr 600 - 1,200 mg PO BIDP PRN (Reason: Congestion) Qty: 30 0RF Referrals Follow up/Referrals: Junaid Ferrera APRN [Primary Care Provider] - See instructions Clinical Impressions Clinical Impression: COPD exacerbation, Acute hypoxic respiratory failure Discharge ED Provider: Sacha Lozada [facility] General Chief Complaint: Shortness of Breath/Dyspnea Stated Complaint: SOA Time Seen by Provider: 02/08/23 16:22 Mode of Arrival: Wheelchair Source of Information: Patient Limitations: No Limitations Description of Symptoms (Recalled from ER Triage Doc. by RN): pt to ed c/o SOA. pt states she was seen in [facility] yesterday for same complaint. pt states she wants an order for home 02. History of Present Illness HPI narrative: Patient is a 58-year-old female with past medical history of COPD not on home oxygen, current smoker who presents emergency department for evaluation of shortness of breath. Onset was acute, over the last 2 to 3 days. Patient has had positive sick contacts at home, productive cough and shortness of breath. No chest pain. She presented to urgent care yesterday where she was discharged with low-dose steroids and Augmentin. She has a previous history of COVID infection where she had as needed oxygen as needed however has not used oxygen in over a year and a half. No other acute complaints at this time. Related Data Previous Rx's Medication Instructions Recorded Advair Diskus 250 mcg-50 mcg/dose 1 inh inhalation BID 90 days #180 01/21/23 powder for inhalation (fluticasone ea propion-salmeterol) albuterol sulfate 90 mcg/actuation 2 inh inhalation QID PRN shortness 01/21/23 aerosol inhaler of breath or wheezing 90 days #8.5 grams bupropion HCl 150 mg 24 hr tablet, 150 mg PO DAILY #90 tabs 01/21/23 extended release (Wellbutrin XL) cetirizine 10 mg tablet See Rx Instructions .Route 01/21/23 .COMPLEX #90 tabs cholecalciferol (vitamin D3) 1,250 1,250 mcg PO WEEKLY vitamin d 01/21/23 mcg (50,000 unit) capsule deficiency #14 caps clobetasol 0.05 % topical cream 1 applic topical BID #60 grams 01/21/23 fexofenadine 180 mg tablet 180 mg PO DAILY #90 tabs 01/21/23 (Allergy Relief (fexofenadine)) fluticasone propionate 50 1 spray intranasal QDAY COPD #16 01/21/23 mcg/actuation nasal grams spray,suspension (Allergy Relief (fluticasone)) ipratropium 0.5 mg-albuterol 3 mg 3 ml inhalation QID PRN shortness 01/21/23 (2.5 mg base)/3 mL nebulization of breath or wheezing 90 days #360 soln mL hydrocodone 5 mg-acetaminophen 325 1 tab PO TID Pain #90 tabs 01/22/23 mg tablet azithromycin 250 mg tablet See Rx Instructions PO .COMPLEX #6 02/04/23 tabs benzonatate 100 mg capsule 100 mg PO TID PRN cough #30 caps 02/04/23 prednisone 20 mg tablet 20 mg PO BID 5 days #10 tabs 02/04/23 amoxicillin 875 mg-potassium 1 tab PO Q12H #20 tabs 02/07/23 clavulanate 125 mg tablet benzonatate 100 mg capsule 100 mg PO TIDP PRN Cough #30 caps 02/07/23 guaifenesin 600 mg tablet, 600 - 1,200 mg PO BIDP PRN 02/07/23 extended release 12 hr (Mucinex) Congestion #30 tabs prednisone 10 mg tablet 10 mg PO DIRECTED 9 days #21 02/07/23 tabs Allergies Allergy/AdvReac Type Severity Reaction Status Date / Time doxycycline [DOXYCYCLINE] Allergy Unknown Verified 02/07/23 14:55 [facility] Disclaimer: The information contained in this section may have been updated after the patient was seen, as this information can be updated by other users. Medical History Acute bronchitis Acute exacerbation of chronic obstructive pulmonary disease Acute respiratory failure with hypoxia Body aches Bronchitis COPD (chronic obstructive pulmonary disease) COPD with acute bronchitis Cough Dyspnea on exertion Ex-smoker for less than 1 year Fatigue Fever Lesion of vulva Multiple pulmonary nodules Tobacco abuse Tobacco abuse counseling Tobacco use Upper respiratory infection Surgical History History of tonsillectomy Family History Mother Hypertension Social History Smoking Status: Never smoker how long ago did patient quit smokin10/02/2021 alcohol intake: never substance use type: denies use current occupational status: employed and other Travel in the last 8 weeks: None household members: spouse housing: house ROS Obtained: Yes Systems reviewed as appropriate & no additional complaints except as documented Physical Exam General General appearance: alert and in no apparent distress Head Head exam: atraumatic and normocephalic Eye Eye exam: Present PERRL and EOMI ENT ENT exam: Present mucous membranes moist Neck Neck exam: Present normal inspection Chest Chest inspection: Present normal inspection and symmetric chest wall rise Respiratory Respiratory exam: Present wheezes, accessory muscle use and prolonged expiratory phase; Absent normal lung sounds bilaterally (Diffuse rhonchi and wheezing in all lung vilchis) or respiratory distress Cardiovascular Cardiovascular exam: Present regular rate and normal rhythm Abdominal Exam Abdominal exam: Present soft Extremities Exam Extremities exam: Present normal inspection Neurological Exam Neurological exam: Present alert Psychiatric Psychiatric exam: Present normal affect Skin Skin exam: Present warm and dry HEART Score HEART Score HEART Score assessment performed?: No Critical Care Critical Care Time Critical Care Time: No Medical Decision Making Franc Inquiry Pt receiving controlled substance: No Vital Signs Vital Signs: 02/08/23 16:34 02/08/23 16:30 02/08/23 17:01 Temperature 98.2 F Temperature Source Oral Pulse Rate 92 H 97 H Pulse Rate [Left Radial] 93 H Respiratory Rate 20 22 20 Blood Pressure 122/67 148/97 H Blood Pressure [Right Arm] 122/67 Blood Pressure Mean 85 114 Blood Pressure Mean [Right Arm] 85 02 Sat by Pulse Oximetry 94 L 94 L 94 L Oxygen Delivery Method Nasal Cannula Nasal Cannula Nasal Cannula Oxygen Flow Rate (LPM) 2 2 2 02/08/23 18:39 02/08/23 17:40 02/08/23 17:40 Temperature Temperature Source Pulse Rate 97 H 111 H 107 H Pulse Rate [Left Radial] Respiratory Rate Blood Pressure 135/77 Blood Pressure [Right Arm] Blood Pressure Mean Blood Pressure Mean [Right Arm] 02 Sat by Pulse Oximetry 97 Oxygen Delivery Method Nasal Cannula Oxygen Flow Rate (LPM) 2 Lab Data Labs: Lab Results 02/08/23 16:26: SARS-CoV-2 (PCR) Not detected, Influenza A Untype (PCR) Not detected, Influenza Type B (PCR) Not detected 02/08/23 16:43: WBC 9.2, RBC 5.55 H, Hgb 16.5 H, Hct 51.1 H, MCV 92.1, MCH 29.7, MCHC 32.2, RDW 13.3, Plt Count 246, MPV 8.8, Neut % (Auto) 82.0 H, Lymph % (Auto) 12.6, Garrard % (Auto) 4.8, Eos % (Auto) 0.1, Baso % (Auto) 0.6, Neut # (Auto) 7.5, Lymph # (Auto) 1.2, Garrard # (Auto) 0.4, Eos # (Auto) 0.0, Baso # (Auto) 0.1, Sodium 138, Potassium 4.4, Chloride 97 L, Carbon Dioxide 34 H, Anion Gap 11.4, BUN 15, Creatinine 0.80, Estimated Creat Clear 89, Estimated GFR 74, Est GFR ( Amer) 90, Glucose 108 H, Lactate 1.3, Calcium 8.7, Total Bilirubin 0.4, AST 32, ALT 32, Alkaline Phosphatase 81, Total Protein 6.8, Albumin 4.3, Globulin 2.5, Albumin/Globulin Ratio 1.7 02/08/23 17:07: VBG pH 7.36, VBG pCO2 55.8 H, VBG pO2 43.4 H, VBG HCO3 30.5 H, VBG Total CO2 32.2 H, VBG O2 Saturation 80.1 H, VBG Base Excess 5.0 H 02/08/23 16:43 02/08/23 16:43 Response Orders (Tests/Meds): ED MEDICATIONS Discontinued Medications Generic Name Dose Route Start Last Admin Trade Name Freq PRN Reason Stop Dose Admin Albuterol Sulfate 20 mg 02/08/23 18:47 02/08/23 19:15 Albuterol 0.083% 2.5 Mg/3 Ml Neb IH 02/08/23 18:48 20 mg ONCE ONE Administration Albuterol/Ipratropium 9 ml 02/08/23 17:06 02/08/23 17:40 Ipratropium/Albuterol 3 Ml Neb IH 02/08/23 17:07 9 ml ONCE ONE Administration Azithromycin 500 mg/ Sodium 250 mls @ 250 mls/hr 02/08/23 17:07 02/08/23 17:30 Chloride IV 02/08/23 17:08 250 mls/hr ONCE ONE Administration Methylprednisolone Sodium Succinate 125 mg 02/08/23 17:06 02/08/23 17:30 Methylprednisolone Sod Succ 125mg Vial IV 02/08/23 17:07 125 mg ONCE ONE Administration ORDERS Category Date Time Status CXR 2 view (NOT portable) [XR chest 2V] Stat Exams 02/08/23 17:06 Completed CBC w/Auto Diff [Complete Blood Count Auto Diff] Stat Lab 02/08/23 16:43 Completed CMP [Comprehensive Metabolic Panel] Stat Lab 02/08/23 16:43 Completed Lactic Acid Stat Lab 02/08/23 16:43 Completed Rapid PCR Covid and Flu A/B Stat Lab 02/08/23 16:26 Completed Blood Culture Stat Micro 02/08/23 17:15 Received VBG [Venous Blood Gas] Stat RT 02/08/23 17:07 Completed ECG Data Tracing #1: ECG Narrative: Independently interpreted by me, rate is 90, rhythm is regular, axis is normal, no ST elevation in anatomical contiguous leads, QT 369. MDM Narrative Medical Decision Narrative: In summary patient is a 58-year-old female with past medical history described above who presents emergency department for evaluation of shortness of breath and cough. Patient is hemodynamically stable and nontoxic-appearing upon arrival, afebrile. Ambulatory oxygen in the low 80s with tachypnea. Patient was placed on 2 L nasal cannula for maintenance of oxygen greater than 90%. Diffuse rhonchi in all lung vilchis. Differential includes pneumonia, COPD exacerbation, among others. Workup will be conducted with hematologic labs, chest x-ray, EKG, blood cultures x 2, viral swab. Initial interventions include DuoNeb's x 3, methylprednisolone, azithromycin. Initial workup reviewed by me, hematologic labs are nonactionable, compensated acid-base status. No ROBERTO or critical electrolyte abnormality. Viral swab negative. Chest x-ray informally interpreted by me, emphysematous lung changes without large pneumothorax or lobar consolidation. Upon repeat evaluation patient had improved air movement, persistent wheezing for which continuous albuterol for 1 hour will be ordered. Given persistent significant wheezing and new oxygen requirement compared to baseline the case was discussed with hospital medicine regarding management and patient will be admitted to their service for continued evaluation at this time.
[2023-02-08 17:14] LABS: VBG HCO3 30.5 mmol/L (23-30); VBG Oxygen Saturation 80.1 % (50-70); VBG PH 7.36 mmol/L (7.31-7.41); VBG PO2 43.4 mmol/L (28-40); VBG Total CO2 32.2 mmol/L (23-27)
[2023-02-08 17:14] LABS: Basophils # 0.1 K/mm3 (0-0.2); Basophils % 0.6 % (0.1-2.0); Eosinophils % 0.1 % (0.1-12.0); Hematocrit 51.1 % (37.0-47.0); Hemoglobin 16.5 g/dL (12.2-16.2); Lymphocytes # 1.2 K/mm3 (0.7-4.5); Lymphocytes % 12.6 % (10-50); Mean Corpuscular HGB Conc 32.2 g/dL (31.8-35.4); Mean Corpuscular Hemoglobin 29.7 pg (27.0-31.2); Mean Corpuscular Volume 92.1 fl (81-99); Mean Platelet Volume 8.8 fl (7.4-10.4); Monocytes # 0.4 K/mm3 (0.1-1.0); Monocytes % 4.8 % (1.7-9.3); Neutrophils # 7.5 K/mm3 (1.8-7.8); Platelet Count 246 K/mm3 (142-424); Red Blood Count 5.55 M/mm3 (4.20-5.40); Red Cell Distribution Width 13.3 % (11.5-17.5); White Blood Count 9.2 K/mm3 (4.8-10.8)
[2023-02-08 17:16] LABS: Chloride 97 mmol/L (98-107)
[2023-02-08 17:17] LABS: Potassium 4.4 mmoL/L (3.5-5.1); Sodium 138 mmol/L (136-145)
[2023-02-08 17:18] LABS: VBG PCO2 55.8 mmol/L (35-51)
[2023-02-08 17:19] LABS: Lactic Acid 1.3 mmol/L (0.7-2.1)
[2023-02-08 17:20] LABS: Alanine Aminotransferase 32 U/L (12-78); Albumin Level 4.3 g/dl (3.5-5.0); Albumin/Globulin Ratio 1.7 (1.1-1.8); Alkaline Phosphatase 81 U/L (38-126); Anion Gap 11.4 mEq/L (5-15); Aspartate Amino Transferase 32 U/L (14-36); Bilirubin,Total 0.4 mg/dl (0.2-1.3); Blood Urea Nitrogen 15 mg/dl (7-17); Calcium 8.7 mg/dl (8.4-10.2); Carbon Dioxide 34 mmol/L (22.0-30.0); Creatinine Clearance Estimated 89 mL/min (50-200); Estimated Glomerular Filt Rate 74 ml/min (>60); GFR (African American) 90 ML/MIN (>60); Globulin 2.5 g/dL (1.3-3.2); Glucose 108 mg/dl (74-100); Total Protein,Serum 6.8 g/dl (6.3-8.2)
[2023-02-08] MEDS: METHYLPREDNISOLONE SOD SUCC 125MG VIAL 125 MG IV (17:30)
[2023-02-08] MEDS: AZITHROMYCIN 500 MG in 0.9 % SODIUM CHLORIDE 250 ML 250 MG IV (17:30)
[2023-02-08] MEDS: IPRATROPIUM/ALBUTEROL 3 ML NEB 9 ML IH (17:40)
--- NOTE | 2023-02-08 18:45 | PC.NURSE ---
Rounded on pt. Pt provided with sandwich, chips, and drink. No other needs voiced. Call light within reach.
--- NOTE | 2023-02-08 18:46 | PC.NURSE ---
Dr. Lozada at [facility] to update on results and POC
--- NOTE | 2023-02-08 19:01 | PC.NURSE ---
RT at [facility] to administer breathing treatment
[2023-02-08] MEDS: ALBUTEROL 0.083% 2.5 MG/3 ML NEB 20 MG IH (19:15)
--- NOTE | 2023-02-08 19:52 | EXP.HP ---
History of Present Illness *Admission Date: 02/08/23 *Reason for visit:: SOB *History of present illness: This is a 58-year-old female with PMHx of COPD not on home oxygen, current smoker who presents emergency department for evaluation of increased and worsened shortness of breath. Onset was acute, over the last 2 to 3 days. Patient has had positive sick contacts at home, productive cough and shortness of breath. No chest pain. She presented to urgent care yesterday where she was discharged with low-dose steroids and Augmentin. She has a previous history of COVID infection where she had as needed oxygen as needed however has not used oxygen in over a year and a half. No other acute complaints at this time. Admitted for treatment and management. [facility] Disclaimer: The information contained in this section may have been updated after the patient was seen, as this information can be updated by other users. Medical History (Updated 02/09/23 @ 06:56 by Boo Valencia APRN) Acute bronchitis Acute exacerbation of chronic obstructive pulmonary disease Acute respiratory failure with hypoxia Body aches Bronchitis COPD (chronic obstructive pulmonary disease) COPD with acute bronchitis Cough Dyspnea on exertion Ex-smoker for less than 1 year Fatigue Fever Lesion of vulva Multiple pulmonary nodules Tobacco abuse Tobacco abuse counseling Tobacco use Upper respiratory infection Surgical History History of tonsillectomy Family History Mother Hypertension Social History (Updated 02/08/23 @ 21:00 by Ann Gonzalez RN) Smoking Status: Current every day smoker tobacco type: e-cigarettes how long ago did patient quit smokin10/02/2021 alcohol intake: never substance use type: denies use current occupational status: employed and other Travel in the last 8 weeks: None household members: spouse housing: house Review of Systems Review of Systems Review of systems:: pertinent systems reviewed and negative unless documented below Meds Home Medications and Allergies Home Medications Medication Instructions Recorded Confirmed Type Advair Diskus 250 mcg-50 mcg/dose 1 inh inhalation BID 90 days #180 01/21/23 02/08/23 Rx powder for inhalation (fluticasone ea propion-salmeterol) cetirizine 10 mg tablet 10 mg PO DAILY 02/08/23 02/08/23 History hydrocodone 5 mg-acetaminophen 325 1 tab PO TID PRN Pain (Scale Score 02/08/23 02/08/23 History mg tablet 4-6) albuterol sulfate 90 mcg/actuation 2 puff inhalation QIDP PRN 02/09/23 02/09/23 History aerosol inhaler (Ventolin HFA) Shortness Of Breath Or Wheezing benzonatate 100 mg capsule 100 mg PO TIDP PRN Cough 02/09/23 02/09/23 History levofloxacin 250 mg tablet 250 mg PO DAILY 5 days #5 tabs 02/10/23 Rx prednisone 50 mg tablet 50 mg PO DAILY 5 days #5 tabs 02/10/23 Rx New Prescriptions to Start Prescriptions: levofloxacin Reza,Irfan prednisone Reza,Irfan Allergies Allergy/AdvReac Type Severity Reaction Status Date / Time doxycycline [DOXYCYCLINE] Allergy Unknown Verified 02/07/23 14:55 Exam Data for Last 24 hours Vital signs and Labs for Last 24 Hours: Temp Pulse Resp BP Pulse Ox O2 Del Method O2 Flow Rate 98.2 F 97 H 20 135/77 97 Nasal Cannula 2 02/08/23 16:34 02/08/23 18:39 02/08/23 17:01 02/08/23 18:39 02/08/23 18:39 02/08/23 18:39 02/08/23 18:39 Laboratory Results - last 24 hr 02/08/23 16:26: SARS-CoV-2 (PCR) Not detected, Influenza A Untype (PCR) Not detected, Influenza Type B (PCR) Not detected 02/08/23 16:43: WBC 9.2, RBC 5.55 H, Hgb 16.5 H, Hct 51.1 H, MCV 92.1, MCH 29.7, MCHC 32.2, RDW 13.3, Plt Count 246, MPV 8.8, Neut % (Auto) 82.0 H, Lymph % (Auto) 12.6, [place] % (Auto) 4.8, Eos % (Auto) 0.1, Baso % (Auto) 0.6, Neut # (Auto) 7.5, Lymph # (Auto) 1.2, [place] # (Auto) 0.4, Eos # (Auto) 0.0, Baso # (Auto) 0.1, Sodium 138, Potassium 4.4, Chloride 97 L, Carbon Dioxide 34 H, Anion Gap 11.4, BUN 15, Creatinine 0.80, Estimated Creat Clear 89, Estimated GFR 74, Est GFR ( Amer) 90, Glucose 108 H, Lactate 1.3, Calcium 8.7, Total Bilirubin 0.4, AST 32, ALT 32, Alkaline Phosphatase 81, Total Protein 6.8, Albumin 4.3, Globulin 2.5, Albumin/Globulin Ratio 1.7 02/08/23 17:07: VBG pH 7.36, VBG pCO2 55.8 H, VBG pO2 43.4 H, VBG HCO3 30.5 H, VBG Total CO2 32.2 H, VBG O2 Saturation 80.1 H, VBG Base Excess 5.0 H I & O for Last 24 hours: Intake & Output 02/05/23 02/06/23 02/07/23 02/08/23 23:59 23:59 23:59 23:59 Weight 71.668 kg Constitutional Constitutional: no acute distress *Routine HEENT Exam Head: Present normocephalic Eye: Present EOMI ENT: Present mucous membranes moist *Routine Neck Exam Neck: Present supple *Routine Respiratory Exam Respiratory: Present decreased breath sounds, rhonchi, wheezes, diminished air movement and able to speak in complete sentences; Absent accessory muscle use or respiratory distress *Routine Cardiovascular Exam Cardiovascular: Present RRR *Routine Abdominal Exam Abdominal: Present soft; Absent tenderness *Routine Rectal Exam Rectal:: deferred *Routine Genitalia Exam Genitalia:: deferred *Routine Extremities Exam Extremities: Present full ROM and pulses intact; Absent cyanosis, clubbing, edema or extremity cold to touch *Routine Skin Exam Skin: Present intact; Absent cyanosis *Routine Neurological Exam Neurological: Present alert and oriented X3 H&P: Result Imaging and Cardiology Chest x-ray: Status: image reviewed by me, Preliminary report and final report EKG: Status: image reviewed by me and Preliminary report Assessment and Plan *Assessment and plan (1) Acute exacerbation of chronic obstructive pulmonary disease: Status: Chronic Category: Medical Code(s): J44.1 - Chronic obstructive pulmonary disease with (acute) exacerbation (2) Multiple pulmonary nodules: Status: Chronic Category: Medical Code(s): R91.8 - Other nonspecific abnormal finding of lung field (3) Chronic knee pain: Status: Acute Qualifiers: Laterality: unspecified laterality Qualified Code(s): M25.569 - Pain in unspecified knee; G89.29 - Other chronic pain Category: Medical Code(s): M25.569 - Pain in unspecified knee; G89.29 - Other chronic pain (4) Tobacco use: Status: Acute Category: Social Hx Code(s): Z72.0 - Tobacco use Plan 58-year-old female with PMHx of COPD not on home oxygen, current smoker who presents emergency department for evaluation of increased and worsened shortness of breath. Onset was acute, over the last 2 to 3 days. On arrival patient was not in respiratory distress, low saturation. Blood gas was showing hypercapnia. Patient underwent a couple rounds of nebulizers and IV Solu-Medrol with improvement. X-ray was obtained. Negative for acute process. Significant COPD changes. Findings discussed with the ER provider for admission. Plan as follow: -acute exacerbation of COPD, new oxygen requirement: Admit patient for medical services. [facility] Pulmonology consult Monitor for O2 saturation. Currently on 4 L. Weaning off DuoNeb every 6 Patient on prednisone 20 mg twice daily. -History of pulmonary nodule: Condition stable. -History of chronic pain: On hydrocodone at home. Pain management Tobacco abuse Nicotine patch Lovenox for DVT prophylaxis on Protonix Full code Attending attestation Patient was seen and evaluated at the bedside myself, agree with EDI ANALYST note.
--- NOTE | 2023-02-08 20:23 | PC.NURSE ---
Called housekeeper caregiver to request a bed for admission to the hospitalist for COPD exacerbation.
--- NOTE | 2023-02-08 20:28 | PC.NURSE ---
Observation admission to 214 with dx of copd with exacerbation to service of the hospitalist.
--- NOTE | 2023-02-08 20:40 | PC.NURSE ---
I called report for admission to [facility]
--- NOTE | 2023-02-08 21:06 | PC.NURSE ---
pt arrived to floor @20:51 via wheelchair
[2023-02-08] MEDS: PANTOPRAZOLE 40MG TABLET 40 MG PO (21:09)
[2023-02-09] VITALS (11 sets, daily range): BP systolic 131–138; BP diastolic 65–89; PULSE 68–108; RESP 14–20; TEMP 36.6–36.8; O2SAT 2–100; BMI 22.4
[2023-02-09] MEDS: IPRATROPIUM/ALBUTEROL 3 ML NEB IH ×5 (00:23→23:04)
[2023-02-09] MEDS: NICOTINE 21MG/24HR PATCH 14 MG TD (06:07)
--- NOTE | 2023-02-09 06:25 | PC.NURSE ---
Pt a/o x4. Pt currently on 2 L nc, tolerating well with sats >90%. Pt will drop to lower 80s and becomes symptomatic with exertion. Ambulating to BR with standby assist. Call light within reach.
[2023-02-09 07:04] LABS: Basophils % 0.4 % (0.1-2.0); Mean Corpuscular Volume 92.6 fl (81-99); Monocytes # 0.3 K/mm3 (0.1-1.0)
[2023-02-09 07:15] LABS: Hematocrit 44.7 % (37.0-47.0); Lymphocytes # 1.3 K/mm3 (0.7-4.5); Lymphocytes % 20.8 % (10-50); Mean Corpuscular HGB Conc 32.2 g/dL (31.8-35.4); Mean Corpuscular Hemoglobin 29.8 pg (27.0-31.2); Mean Platelet Volume 9.7 fl (7.4-10.4); Monocytes % 4.3 % (1.7-9.3); Neutrophils # 4.7 K/mm3 (1.8-7.8); Neutrophils % 74.5 % (37.0-80.0); Platelet Count 169 K/mm3 (142-424); Red Blood Count 4.82 M/mm3 (4.20-5.40); Red Cell Distribution Width 13.3 % (11.5-17.5); White Blood Count 6.4 K/mm3 (4.8-10.8)
[2023-02-09 07:29] LABS: Alanine Aminotransferase 24 U/L (12-78); Albumin Level 3.5 g/dl (3.5-5.0); Albumin/Globulin Ratio 1.4 (1.1-1.8); Alkaline Phosphatase 60 U/L (38-126); Anion Gap 3.6 mEq/L (5-15); Aspartate Amino Transferase 29 U/L (14-36); Bilirubin,Total 0.2 mg/dl (0.2-1.3); Blood Urea Nitrogen 14 mg/dl (7-17); Calcium 7.7 mg/dl (8.4-10.2); Carbon Dioxide 34 mmol/L (22.0-30.0); Chloride 102 mmol/L (98-107); Creatinine Clearance Estimated 81 mL/min (50-200); Estimated Glomerular Filt Rate 87 ml/min (>60); GFR (African American) 105 ML/MIN (>60); Globulin 2.5 g/dL (1.3-3.2); Glucose 123 mg/dl (74-100); Magnesium 2.2 mg/dl (1.6-2.3); Potassium 4.6 mmoL/L (3.5-5.1); Sodium 135 mmol/L (136-145)
[2023-02-09] MEDS: predniSONE 20MG TAB 20 MG PO ×2 (08:49→20:00)
[2023-02-09] MEDS: LORATADINE 10MG TABLET 10 MG PO (08:49)
[2023-02-09] MEDS: PANTOPRAZOLE 40MG TABLET 40 MG PO (08:49)
[2023-02-09] MEDS: FLUTICASONE/SALMETEROL 250/50MCG DISKUS 1 PUFF IH ×2 (09:12→18:07)
[2023-02-09 09:46] LABS: Hemoglobin 14.4 g/dL (12.2-16.2)
--- NOTE | 2023-02-09 10:36 | HMH.PHAINT1 ---
Pharmacy Intervention Comments: Home med list verified with patient at bedside and with external pharmacy list.
--- NOTE | 2023-02-09 11:35 | P.CONS_ITS ---
History of Present Illness History of present illness: Ms. Gonzalez is a 58-year-old female current smoker greater than 30 PPD history of COPD pulmonary nodules presented to the ER with worsening respiratory distress found to be in COPD exacerbation admitted to the hospital pulmonary was called for further evaluation and management. Patient admits worsening respiratory's along with cough and productive phlegm for the last 5 to 7 days progressively getting worse. She otherwise admits compliance with her Advair inhaler. [facility] Disclaimer: The information contained in this section may have been updated after the patient was seen, as this information can be updated by other users. Medical History (Updated 02/09/23 @ 06:56 by Boo Valencia APRN) Acute bronchitis Acute exacerbation of chronic obstructive pulmonary disease Acute respiratory failure with hypoxia Body aches Bronchitis COPD (chronic obstructive pulmonary disease) COPD with acute bronchitis Cough Dyspnea on exertion Ex-smoker for less than 1 year Fatigue Fever Lesion of vulva Multiple pulmonary nodules Tobacco abuse Tobacco abuse counseling Tobacco use Upper respiratory infection Surgical History History of tonsillectomy Family History Mother Hypertension Social History (Updated 02/08/23 @ 21:00 by Ann Gonzalez RN) Smoking Status: Current every day smoker tobacco type: e-cigarettes how long ago did patient quit smokin10/02/2021 alcohol intake: never substance use type: denies use current occupational status: employed and other Travel in the last 8 weeks: None household members: spouse housing: house Review of Systems Constitutional Constitutional: Reports anorexia, Reports body ache(s) and Reports fatigue Eyes Eyes: Denies eye discharge, Denies dry eyes, Denies irritation and Denies itchy eyes ENT Ears, Nose, Mouth, and Throat: Denies epistaxis, Denies facial pain, Denies lip swelling and Denies throat swelling *Cardiovascular Cardiovascular: Reports dyspnea and Reports dyspnea on exertion *Respiratory Respiratory: Reports chest congestion, Reports cough, Reports dyspnea, Reports dyspnea on exertion, Denies excessive phlegm production and Reports wheezing *Gastrointestinal Gastrointestinal: Denies abdominal pain, Denies belching and Denies cramping *Musculoskeletal Musculoskeletal: Reports myalgias and Reports other (No small joint swelling or Pain) Psychiatric Psychiatric: Denies homicidal ideation and Denies suicidal ideation Endocrine Endocrine: Reports fatigue and Denies heat intolerance Hematologic/Lymphatic Hematologic/Lymphatic: Denies easy bleeding and Denies lymphadenopathy Allergic/Immunologic Allergic/Immunologic: Denies itchy eyes, Denies lip swelling, Denies throat swelling and Reports wheezing Pulmonology Exam Inpatient Vital signs and Labs for Last 24 Hours: Temp Pulse Resp BP Pulse Ox O2 Del Method O2 Flow Rate 97.9 F 90 14 131/65 94 L Nasal Cannula 2 02/09/23 08:00 02/09/23 11:15 02/09/23 08:00 02/09/23 08:00 02/09/23 11:15 02/09/23 11:15 02/09/23 11:15 Laboratory Results - last 24 hr 02/08/23 16:26: SARS-CoV-2 (PCR) Not detected, Influenza A Untype (PCR) Not detected, Influenza Type B (PCR) Not detected 02/08/23 16:43: WBC 9.2, RBC 5.55 H, Hgb 16.5 H, Hct 51.1 H, MCV 92.1, MCH 29.7, MCHC 32.2, RDW 13.3, Plt Count 246, MPV 8.8, Neut % (Auto) 82.0 H, Lymph % (Auto) 12.6, [place] % (Auto) 4.8, Eos % (Auto) 0.1, Baso % (Auto) 0.6, Neut # (Auto) 7.5, Lymph # (Auto) 1.2, [place] # (Auto) 0.4, Eos # (Auto) 0.0, Baso # (Auto) 0.1, Sodium 138, Potassium 4.4, Chloride 97 L, Carbon Dioxide 34 H, Anion Gap 11.4, BUN 15, Creatinine 0.80, Estimated Creat Clear 89, Estimated GFR 74, Est GFR ( Amer) 90, Glucose 108 H, Lactate 1.3, Calcium 8.7, Total Bilirubin 0.4, AST 32, ALT 32, Alkaline Phosphatase 81, Total Protein 6.8, Albumin 4.3, Globulin 2.5, Albumin/Globulin Ratio 1.7 02/08/23 17:07: VBG pH 7.36, VBG pCO2 55.8 H, VBG pO2 43.4 H, VBG HCO3 30.5 H, VBG Total CO2 32.2 H, VBG O2 Saturation 80.1 H, VBG Base Excess 5.0 H 02/09/23 06:33: WBC 6.4 D, RBC 4.82, Hgb 14.4 D, Hct 44.7, MCV 92.6, MCH 29.8, MCHC 32.2, RDW 13.3, Plt Count 169 D, MPV 9.7, Neut % (Auto) 74.5, Lymph % (Auto) 20.8, [place] % (Auto) 4.3, Eos % (Auto) 0.0 L, Baso % (Auto) 0.4, Neut # (Auto) 4.7, Lymph # (Auto) 1.3, [place] # (Auto) 0.3, Eos # (Auto) 0.0, Baso # (Aut o) 0.0, Sodium 135 L, Potassium 4.6, Chloride 102, Carbon Dioxide 34 H, Anion Gap 3.6 L, BUN 14, Creatinine 0.70, Estimated Creat Clear 81, Estimated GFR 87, Est GFR ( Amer) 105, Glucose 123 H, Calcium 7.7 L, Magnesium 2.2, Total Bilirubin 0.2, AST 29, ALT 24, Alkaline Phosphatase 60, Total Protein 6.0 L, Albumin 3.5 D, Globulin 2.5, Albumin/Globulin Ratio 1.4 I & O for Labs for Last 24 Hours: Intake & Output 02/06/23 02/07/23 02/08/23 02/09/23 23:59 23:59 23:59 23:59 Intake Total 720 / 720 Output Total 0 / 0 Balance 0 / 480 720 / 720 Weight 126 lb 6 oz 126 lb 6 oz Constitutional: Present moderate distress Head: Present normocephalic and atraumatic ENT: Present normal exam, normal oropharynx and mucous membranes moist Neck: Present normal inspection and full ROM Respiratory: Present prolonged expiratory phase, respiratory distress, wheezes and able to speak in complete sentences Cardiac: Present S1/S2, Tachycardia and radial pulses present GI: Present soft and distention; Absent tenderness or guarding Rectal (female): Present deferred (female): Present deferred Skin: Present intact; Absent cyanosis or jaundice Neuro: Present alert, awake and oriented x 3 Extremities: Present normal inspection; Absent clubbing or cyanosis Psychiatric: Present normal affect and cooperative Meds Home Medications and Allergies Home Medications Medication Instructions Recorded Confirmed Type Advair Diskus 250 mcg-50 mcg/dose 1 inh inhalation BID 90 days #180 01/21/23 02/08/23 Rx powder for inhalation (fluticasone ea propion-salmeterol) prednisone 20 mg tablet 20 mg PO BID 5 days #10 tabs 02/04/23 02/08/23 Rx cetirizine 10 mg tablet 10 mg PO DAILY 02/08/23 02/08/23 History hydrocodone 5 mg-acetaminophen 325 1 tab PO TID PRN Pain (Scale Score 02/08/23 02/08/23 History mg tablet 4-6) albuterol sulfate 90 mcg/actuation 2 puff inhalation QIDP PRN 02/09/23 02/09/23 History aerosol inhaler (Ventolin HFA) Shortness Of Breath Or Wheezing benzonatate 100 mg capsule 100 mg PO TIDP PRN Cough 02/09/23 02/09/23 History New Prescriptions to Start Prescriptions: Allergies Allergy/AdvReac Type Severity Reaction Status Date / Time doxycycline [DOXYCYCLINE] Allergy Unknown Verified 02/07/23 14:55 Results Laboratory Findings 02/09/23 06:33 02/09/23 06:33 Abnormal lab findings: Abnormal Labs 02/08/23 02/08/23 02/09/23 16:43 17:07 06:33 RBC 5.55 H Hgb 16.5 H Hct 51.1 H Neut % (Auto) 82.0 H Eos % (Auto) 0.0 L VBG pCO2 55.8 H VBG pO2 43.4 H VBG HCO3 30.5 H VBG Total CO2 32.2 H VBG O2 Saturation 80.1 H VBG Base Excess 5.0 H Sodium 135 L Chloride 97 L Carbon Dioxide 34 H 34 H Anion Gap 3.6 L Glucose 108 H 123 H Calcium 7.7 L Total Protein 6.0 L Assessment and Plan *Assessment and plan (1) Acute hypoxic respiratory failure: Status: Acute Category: Medical Code(s): J96.01 - Acute respiratory failure with hypoxia (2) COPD exacerbation: Status: Acute Category: Medical Code(s): J44.1 - Chronic obstructive pulmonary disease with (acute) exacerbation Plan Ms. Gonzalez is a 58-year-old female current smoker greater than 30 PPD history of COPD pulmonary nodules presented to the ER with worsening respiratory distress found to be in COPD exacerbation admitted to the hospital pulmonary was called for further evaluation and management. Patient last in pulmonary clinic in October 2021. Chest x-ray upon admission bilateral hyperinflated lungs, no dense consolidation or airspace disease. Blunting of right CP angle. No evidence of significant leukocytosis upon admission. Hemodynamically stable. Afebrile. COVID-19 and flu PCR negative upon admission. VBG upon admission did not show any significant evidence of hypercarbic respiratory failure. Noted to have hypoxic respiratory failure. Patient on admission was initiated on ceftriaxone azithromycin along with DuoNebs every 6 hours scheduled and prednisone 40 mg daily. On initial examination patient appeared to be in moderate respiratory distress. Needing 2 L nasal oxygen supplementation with bilateral expiratory wheezing noted. Plan: Continue ceftriaxone and azithromycin pending culture results Continue nasal cannula oxygen supplementation to maintain O2 saturation goal of 90% and above Continue DuoNebs every 6 hours on a scheduled basis Continue prednisone 40 mg daily x 5 days Will continue to monitor clinically pending improvement and possible discharge tomorrow. # Thank you for involving pulmonary in this patient care. Will continue to follow
--- NOTE | 2023-02-09 11:41 | PC.NURSE ---
Patient oxygen saturation 84% at rest on room air
--- NOTE | 2023-02-09 11:48 | PC.NURSE ---
Courtesy Round Patient awake sitting up in bed . Patient requested a cup of coffee. Patient voiced no other needs at this time. Call light within reach
[2023-02-09] MEDS: AZITHROMYCIN 500 MG in 0.9 % SODIUM CHLORIDE 250 ML 250 MG IV (14:08)
--- NOTE | 2023-02-09 14:32 | EXP.PN ---
Subjective *Date: 02/09/23 *Time: 14:41 Interval history: still complains of SOB, No reported acute events overnight, denies chest pain, nausea, vomiting, abdominal pain. Exam Data for Last 24 hours Vital signs and Labs for Last 24 Hours: Temp Pulse Resp BP Pulse Ox O2 Del Method O2 Flow Rate 97.9 F 90 14 131/65 94 L Nasal Cannula 2 02/09/23 08:00 02/09/23 11:15 02/09/23 08:00 02/09/23 08:00 02/09/23 11:15 02/09/23 12:48 02/09/23 12:48 Laboratory Results - last 24 hr 02/08/23 16:26: SARS-CoV-2 (PCR) Not detected, Influenza A Untype (PCR) Not detected, Influenza Type B (PCR) Not detected 02/08/23 16:43: WBC 9.2, RBC 5.55 H, Hgb 16.5 H, Hct 51.1 H, MCV 92.1, MCH 29.7, MCHC 32.2, RDW 13.3, Plt Count 246, MPV 8.8, Neut % (Auto) 82.0 H, Lymph % (Auto) 12.6, [place] % (Auto) 4.8, Eos % (Auto) 0.1, Baso % (Auto) 0.6, Neut # (Auto) 7.5, Lymph # (Auto) 1.2, [place] # (Auto) 0.4, Eos # (Auto) 0.0, Baso # (Auto) 0.1, Sodium 138, Potassium 4.4, Chloride 97 L, Carbon Dioxide 34 H, Anion Gap 11.4, BUN 15, Creatinine 0.80, Estimated Creat Clear 89, Estimated GFR 74, Est GFR ( Amer) 90, Glucose 108 H, Lactate 1.3, Calcium 8.7, Total Bilirubin 0.4, AST 32, ALT 32, Alkaline Phosphatase 81, Total Protein 6.8, Albumin 4.3, Globulin 2.5, Albumin/Globulin Ratio 1.7 02/08/23 17:07: VBG pH 7.36, VBG pCO2 55.8 H, VBG pO2 43.4 H, VBG HCO3 30.5 H, VBG Total CO2 32.2 H, VBG O2 Saturation 80.1 H, VBG Base Excess 5.0 H 02/09/23 06:33: WBC 6.4 D, RBC 4.82, Hgb 14.4 D, Hct 44.7, MCV 92.6, MCH 29.8, MCHC 32.2, RDW 13.3, Plt Count 169 D, MPV 9.7, Neut % (Auto) 74.5, Lymph % (Auto) 20.8, [place] % (Auto) 4.3, Eos % (Auto) 0.0 L, Baso % (Auto) 0.4, Neut # (Auto) 4.7, Lymph # (Auto) 1.3, [place] # (Auto) 0.3, Eos # (Auto) 0.0, Baso # (Auto) 0.0, Sodium 135 L, Potassium 4.6, Chloride 102, Carbon Dioxide 34 H, Anion Gap 3.6 L, BUN 14, Creatinine 0.70, Estimated Creat Clear 81, Estimated GFR 87, Est GFR ( Amer) 105, Glucose 123 H, Calcium 7.7 L, Magnesium 2.2, Total Bilirubin 0.2, AST 29, ALT 24, Alkaline Phosphatase 60, Total Protein 6.0 L, Albumin 3.5 D, Globulin 2.5, Albumin/Globulin Ratio 1.4 I & O for Last 24 hours: Intake & Output 02/06/23 02/07/23 02/08/23 02/09/23 23:59 23:59 23:59 23:59 Intake Total 720 / 720 Output Total 0 / 0 Balance 0 / 480 720 / 720 Weight 57.323 kg 57.323 kg Constitutional Constitutional: no acute distress *Routine HEENT Exam Head: Present normocephalic Eye: Present EOMI and PERRL ENT: Present mucous membranes moist *Routine Neck Exam Neck: Present supple; Absent lymphadenopathy *Routine Respiratory Exam Comments: has wheezing b/l lungs *Routine Cardiovascular Exam Cardiovascular: Present RRR *Routine Abdominal Exam Abdominal: Present soft and normoactive bowel sounds; Absent tenderness *Routine Extremities Exam Extremities: Absent cyanosis, clubbing or edema *Routine Skin Exam Skin: Present warm; Absent rash *Routine Neurological Exam Neurological: Present alert and oriented X3 Assessment and Plan *Assessment and plan (1) Acute exacerbation of chronic obstructive pulmonary disease: Status: Chronic Category: Medical Code(s): J44.1 - Chronic obstructive pulmonary disease with (acute) exacerbation (2) Multiple pulmonary nodules: Status: Chronic Category: Medical Code(s): R91.8 - Other nonspecific abnormal finding of lung field (3) Chronic knee pain: Status: Acute Qualifiers: Laterality: unspecified laterality Qualified Code(s): M25.569 - Pain in unspecified knee; G89.29 - Other chronic pain Category: Medical Code(s): M25.569 - Pain in unspecified knee; G89.29 - Other chronic pain (4) Tobacco use: Status: Acute Category: Social Hx Code(s): Z72.0 - Tobacco use Plan 58-year-old female with PMHx of COPD not on home oxygen, current smoker who presents emergency department for evaluation of increased and worsened shortness of breath. Onset was acute, over the last 2 to 3 days. On arrival patient was not in respiratory distress, low saturation. Blood gas was showing hypercapnia. Patient underwent a couple rounds of nebulizers and IV Solu-Medrol with improvement. X-ray was obtained. Negative for acute process. Significant COPD changes. Findings discussed with the ER provider for admission. Plan as follow: -acute exacerbation of COPD, new oxygen requirement: Pulmonology consult - recs noted Monitor for O2 saturation. Currently on 4 L. Weaning off DuoNeb every 6 Patient on prednisone 20 mg twice daily. continue Azithro and rocephin -History of pulmonary nodule: Condition stable. -History of chronic pain: On hydrocodone at home. Pain management Tobacco abuse Nicotine patch Lovenox for DVT prophylaxis on Protonix Full code
--- NOTE | 2023-02-09 16:22 | PC.NURSE ---
No acute changes. Patient weaned to 2LNC. VS stable. Lung sounds expiratory wheezing. No other changes noted
[2023-02-10 04:00] VITALS: BP 130/61; PULSE 78; RESP 18; TEMP 36.5; O2SAT 96; BMI 21.8
[2023-02-10] MEDS: ACETAMINOPHEN 325MG TAB 650 MG PO (04:07)
[2023-02-10] MEDS: ALBUTEROL-HFA 90MCG/PUFF INHALER 8GM 2 PUFF IH ×2 (04:09→09:50)
[2023-02-10] MEDS: IPRATROPIUM/ALBUTEROL 3 ML NEB IH (06:06)
[2023-02-10] MEDS: FLUTICASONE/SALMETEROL 250/50MCG DISKUS 1 PUFF IH (06:06)
[2023-02-10 06:07] VITALS: PULSE 57; PULSE 63; O2SAT 97
[2023-02-10 07:49] VITALS: BP 134/80; PULSE 84; RESP 18; TEMP 36.6; O2SAT 100
[2023-02-10] MEDS: LORATADINE 10MG TABLET 10 MG PO (09:47)
[2023-02-10] MEDS: predniSONE 20MG TAB 20 MG PO (09:47)
[2023-02-10] MEDS: PANTOPRAZOLE 40MG TABLET 40 MG PO (09:47)
[2023-02-10] MEDS: NICOTINE 14MG/24HRS PATCH 14 MG TD (09:54)
--- NOTE | 2023-02-10 10:06 | EXP.PULM.PN ---
Subjective *Date: 02/10/23 *Time: 12:05 Interval history: No acute respiratory events overnight. Patient admits continued improvement in her respiratory symptoms. Pulmonology Exam Inpatient Vital signs and Labs for Last 24 Hours: Temp Pulse Resp BP Pulse Ox O2 Del Method O2 Flow Rate 97.9 F 84 18 134/80 100 Nasal Cannula 2 02/10/23 07:49 02/10/23 07:49 02/10/23 07:49 02/10/23 07:49 02/10/23 07:49 02/10/23 07:49 02/10/23 07:49 I & O for Labs for Last 24 Hours: Intake & Output 02/07/23 02/08/23 02/09/23 02/10/23 23:59 23:59 23:59 23:59 Intake Total 1580 / 1580 480 / 480 Output Total 0 / 0 Balance 0 / 480 1580 / 1580 480 / 480 Weight 126 lb 6 oz 126 lb 6 oz 123 lb 3.2 oz Constitutional: Present moderate distress Head: Present normocephalic and atraumatic ENT: Present normal exam, normal oropharynx and mucous membranes moist Neck: Present normal inspection and full ROM Respiratory: Present respiratory distress, wheezes and able to speak in complete sentences; Absent prolonged expiratory phase Cardiac: Present S1/S2, Tachycardia and radial pulses present GI: Present soft and distention; Absent tenderness or guarding Rectal (female): Present deferred (female): Present deferred Skin: Present intact; Absent cyanosis or jaundice Neuro: Present alert, awake and oriented x 3 Extremities: Present normal inspection; Absent clubbing or cyanosis Psychiatric: Present normal affect and cooperative Assessment and Plan *Assessment and plan (1) Acute hypoxic respiratory failure: Status: Acute Category: Medical Code(s): J96.01 - Acute respiratory failure with hypoxia (2) COPD exacerbation: Status: Acute Category: Medical Code(s): J44.1 - Chronic obstructive pulmonary disease with (acute) exacerbation Plan Ms. Gonzalez is a 58-year-old female current smoker greater than 30 PPD history of COPD pulmonary nodules presented to the ER with worsening respiratory distress found to be in COPD exacerbation admitted to the hospital pulmonary was called for further evaluation and management. Patient last in pulmonary clinic in October 2021. Chest x-ray upon admission bilateral hyperinflated lungs, no dense consolidation or airspace disease. Blunting of right CP angle. No evidence of significant leukocytosis upon admission. Hemodynamically stable. Afebrile. COVID-19 and flu PCR negative upon admission. VBG upon admission did not show any significant evidence of hypercarbic respiratory failure. Noted to have hypoxic respiratory failure. Patient on admission was initiated on ceftriaxone azithromycin along with DuoNebs every 6 hours scheduled and prednisone 40 mg daily. On initial examination patient appeared to be in moderate respiratory distress. Needing 2 L nasal oxygen supplementation with bilateral expiratory wheezing noted. Interval update: No acute respiratory vents overnight. Significant improvement in wheezing. Patient admits improved symptoms but continued needing 1 to 2 L nasal cannula at rest. Plan: -Wean antibiotics to cefdinir to complete a total of 5-day course -Change home inhalers to Trelegy 100 inhaler along with DuoNebs every 6 hours on as-needed basis prior to discharge. Patient needs refills on her nebulization therapies prior to discharge. Continue prednisone 40 mg daily x 5 days Continue nasal cannula oxygen supplementation to maintain O2 saturation goal of 90% and above Will continue to monitor clinically pending improvement and possible discharge tomorrow. # Thank you for involving pulmonary in this patient care. Will follow the patient in pulmonary clinic in 3 to 4 weeks post discharge.
--- NOTE | 2023-02-10 10:40 | PC.NURSE ---
patient oxygen saturation 86% on room air at rest
--- NOTE | 2023-02-10 11:17 | CARE MANAGER ---
Patient will require O2 when discharged. She prefers [facility]. Will fax information to them.
--- NOTE | 2023-02-10 12:02 | EXP.DC.SUM ---
General Admission date:: 02/08/23 Discharge date: 02/10/23 HPI HPI HPI: This is a 58-year-old female with PMHx of COPD not on home oxygen, current smoker who presents emergency department for evaluation of increased and worsened shortness of breath. Onset was acute, over the last 2 to 3 days. Patient has had positive sick contacts at home, productive cough and shortness of breath. No chest pain. She presented to urgent care yesterday where she was discharged with low-dose steroids and Augmentin. She has a previous history of COVID infection where she had as needed oxygen as needed however has not used oxygen in over a year and a half. No other acute complaints at this time. Admitted for treatment and management. Hospital Course Hospital Course Hospital Course: Patient was seen and evaluated at the bedside on the day of discharge. Patient is stable for discharge. Patient wishes to be discharged. All patient questions were answered and patient was given time to ask questions. Patient was discharged in stable condition. Patient understands that she can return to ER in case of any sudden changes in health. Total time spent on DC - 38 mins 58-year-old female with PMHx of COPD not on home oxygen, current smoker who presents emergency department for evaluation of increased and worsened shortness of breath. Onset was acute, over the last 2 to 3 days. On arrival patient was not in respiratory distress, low saturation. Blood gas was showing hypercapnia. Patient underwent a couple rounds of nebulizers and IV Solu-Medrol with improvement. X-ray was obtained. Negative for acute process. Significant COPD changes. Findings discussed with the ER provider for admission. Acute exacerbation of COPD, new oxygen requirement: Pulmonology consult - recs noted History of pulmonary nodule: Condition stable. History of chronic pain: On hydrocodone at home. Pain management Tobacco abuse Nicotine patch Lovenox for DVT prophylaxis on Protonix Full code Exam Data for Last 24 hours Vital signs and Labs for Last 24 Hours: Temp Pulse Resp BP Pulse Ox O2 Del Method O2 Flow Rate 97.9 F 84 18 134/80 100 Nasal Cannula 2 02/10/23 07:49 02/10/23 07:49 02/10/23 07:49 02/10/23 07:49 02/10/23 07:49 02/10/23 09:40 02/10/23 09:40 I & O for Last 24 hours: Intake & Output 02/07/23 02/08/23 02/09/23 02/10/23 23:59 23:59 23:59 23:59 Intake Total 1580 / 1580 480 / 480 Output Total 0 / 0 Balance 0 / 480 1580 / 1580 480 / 480 Weight 57.323 kg 57.323 kg 55.883 kg Constitutional Constitutional: no acute distress *Routine HEENT Exam Head: Present normocephalic Eye: Present EOMI and PERRL ENT: Present mucous membranes moist *Routine Neck Exam Neck: Present supple; Absent lymphadenopathy *Routine Respiratory Exam Respiratory: Present CTA bilaterally *Routine Cardiovascular Exam Cardiovascular: Present RRR *Routine Abdominal Exam Abdominal: Present soft and normoactive bowel sounds; Absent tenderness *Routine Extremities Exam Extremities: Absent cyanosis, clubbing or edema *Routine Skin Exam Skin: Present warm; Absent rash *Routine Neurological Exam Neurological: Present alert and oriented X3 DS: Diagnosis Discharge Diagnosis (1) Acute hypoxic respiratory failure: Status: Acute Code(s): J96.01 - Acute respiratory failure with hypoxia (2) COPD exacerbation: Status: Acute Code(s): J44.1 - Chronic obstructive pulmonary disease with (acute) exacerbation Meds Home Medications and Allergies Home Medications Medication Instructions Recorded Confirmed Type Advair Diskus 250 mcg-50 mcg/dose 1 inh inhalation BID 90 days #180 01/21/23 02/08/23 Rx powder for inhalation (fluticasone ea propion-salmeterol) cetirizine 10 mg tablet 10 mg PO DAILY 02/08/23 02/08/23 History hydrocodone 5 mg-acetaminophen 325 1 tab PO TID PRN Pain (Scale Score 02/08/23 02/08/23 History mg tablet 4-6) albuterol sulfate 90 mcg/actuation 2 puff inhalation QIDP PRN 02/09/23 02/09/23 History aerosol inhaler (Ventolin HFA) Shortness Of Breath Or Wheezing benzonatate 100 mg capsule 100 mg PO TIDP PRN Cough 02/09/23 02/09/23 History levofloxacin 250 mg tablet 250 mg PO DAILY 5 days #5 tabs 02/10/23 Rx prednisone 50 mg tablet 50 mg PO DAILY 5 days #5 tabs 02/10/23 Rx New Prescriptions to Start Prescriptions: levofloxacin Reza,Irfan prednisone Reza,Irfan Allergies Allergy/AdvReac Type Severity Reaction Status Date / Time doxycycline [DOXYCYCLINE] Allergy Unknown Verified 02/07/23 14:55 Discharge Plan Disposition Patient Disposition: Home, Self-Care Condition: Good Follow up Plan Follow up with: Yobani Monatlvo MD [Staff Physician] - 2 weeks Matty Werner MD [Physician] - Enter time for follow up Prescriptions/Medication Reconciliation: New prednisone 50 mg tablet 50 mg PO DAILY 5 Days Qty: 5 0RF levofloxacin 250 mg tablet 250 mg PO DAILY 5 Days Qty: 5 0RF Continued fluticasone propion-salmeterol [Advair Diskus] 250-50 mcg/dose blister with device 1 inh INHALATION BID 90 Days Qty: 180 3RF cetirizine 10 mg tablet 10 mg PO DAILY hydrocodone-acetaminophen 5-325 mg tablet 1 tab PO TID PRN (Reason: Pain (Scale Score 4-6)) benzonatate 100 mg capsule 100 mg PO TIDP PRN (Reason: Cough) albuterol sulfate [Ventolin HFA] 90 mcg/actuation HFA aerosol inhaler 2 puff INHALATION QIDP PRN (Reason: Shortness Of Breath Or Wheezing) Discontinued prednisone 20 mg tablet 20 mg PO BID 5 Days Qty: 10 0RF Problem Reconciliation Problems Reviewed?: Yes Patient Discharge Instructions ACTIVITY: Ambulate as tolerated DIET: advance to your usual diet Patient Instructions: Chronic Obstructive Pulmonary Disease, DI for Chronic Obstructive Pulmonary Disease, DI for Pneumonia -- Adult Providers Primary Care Provider: Junaid Ferrera Admit Provider: Yobani Montalvo Attending Provider: Yobani Montalvo
--- NOTE | 2023-02-11 13:58 | CARE MANAGER ---
Called and spoke with patient's regarding recent discharge. He states patient is doing well, napping at time of call. He confirmed that she has started all new medication and he wrote down her scheduled f/u appts.
== END 2023-02-10 15:40 | disposition home or self-care (01) ==
LOC: UTC 15:58 → ER 16:10 → 2ND 20:48
PROVIDERS: Nurse Practitioner Family; Admitting Provider Internal Medicine Adolescent Medicine; Emergency Provider Emergency Medicine; PCP Nurse Practitioner Family; Visit Provider Internal Medicine Adolescent Medicine
DX: J44.1 Chronic obstructive pulmonary disease with (acute) exacerbation (principal); F17.210 Nicotine dependence, cigarettes, uncomplicated; Z86.16 Personal history of COVID-19; J96.01 Acute respiratory failure with hypoxia; R91.8 Other nonspecific abnormal finding of lung field; G89.29 Other chronic pain
CPT/HCPCS: 36415; 71046; 80053; 82803; 83605; 83735; 85025; 87040; 87636; 93005; 94640; 99285; G0378; J0456

== ENCOUNTER 2023-03-01 12:09 | Outpatient (CLI) | payer OTHER, SELFPAY ==
[2023-03-01 17:41] LABS: Amphetamine/Metha Screen,Urine Negative ng/ml (<1000); Barbiturates Screen,Urine Negative ng/ml (<200); Benzodiazepines Screen,Urine Positive ng/ml (<200); Cannabinoid Screen,Urine Positive ng/ml (<50); Cocaine Screen,Urine Negative ng/ml (<300); Methadone Screen,Urine Negative ng/ml (<300); Opiate Screen,Urine Positive ng/ml (<300); Phencyclidine Screen,Urine Negative ng/ml (<25)
[2023-03-06 16:43] LABS: Alprazolam Negative (Cutoff=100); Benzodiazepines Positive ng/mL (Cutoff=100); Clonazepam Negative (Cutoff=100); Flurazepam Negative (Cutoff=100); Lorazepam Negative (Cutoff=100); Midazolam Negative (Cutoff=100); Temazepam Negative (Cutoff=100); Triazolam Negative (Cutoff=100)
== END 2023-03-01 23:59 ==
LOC: LAB.DROPOF 12:09
PROVIDERS: PCP Physician Assistant; Visit Provider Physician Assistant
DX: F11.20 Opioid dependence, uncomplicated (principal); Z79.899 Other long term (current) drug therapy
CPT/HCPCS: 80307; 80346

== ENCOUNTER 2023-03-10 14:02 | Outpatient (CLI) | payer OTHER, SELFPAY ==
--- NOTE | 2023-03-10 14:02 | CT_ITS ---
FINAL REPORT CLINICAL HISTORY: lung cancer screening 40 pack year history quit less than 1 mos ago, smoked 1 pack or less per day for 33 years COMPARISON: 12/05/2020 FINDINGS: CT CHEST LOW DOSE SCREENING HISTORY: Screening exam for lung cancer. 58-year-old female former smoker, quit 1 month ago, 40 pack year smoking history DOSE: CTDIvol: 2.9 mGy, DLP: 111.51 mGy*cm COMPARISON: 12/05/2020. TECHNIQUE: Axial CT without IV contrast administration using low dose protocol FINDINGS: No acute lung disease is present . There is a 5 mm ovoid nodule in the periphery of the right lower lobe best seen on image #15, was previously 3 mm in size, slightly increased in prominence on today's exam. There are several other right upper lobe nodules identified which are stable. There are advanced changes of emphysema present. No pleural or pericardial effusion is seen . No adenopathy or mass lesion is present . IMPRESSION: Slight increase in size of the right lower lobe nodule as described. No evidence of adenopathy or effusion. LUNG RADS CATEGORY 2 RECOMMENDATION: 12 month LDCT follow up Reviewed, Interpreted and Dictated by Jazmyn Steele MD Transcribed by Karyn Billings Authenticated and [facility]
[2023-03-10 15:09] LABS: Erythrocyte Sedimentation Rate 9 mm/hr (0-30)
[2023-03-10 15:38] LABS: C-Reactive Protein 6.4 mg/L (0-4)
[2023-03-10 15:50] LABS: 25-OH Vitamin D, Total 30.4 ng/mL (30-100)
[2023-03-10 16:23] LABS: Vitamin B12 456 pg/mL (239-931)
[2023-03-11 11:13] LABS: Anti-Centromere B Antibodies <0.2 AI (0.0-0.9); Anti-DNA (DS) Ab Qn <1 IU/mL (0-9); Anti-Jo-1 <0.2 AI (0.0-0.9); Anti-Smith Antibody <0.2 AI (0.0-0.9); Antichromatin Antibodies <0.2 AI (0.0-0.9); Antiscleroderma-70 Antibodies <0.2 AI (0.0-0.9); RA Latex Turbid. <10.0 IU/mL (<14.0); RNP Antibodies <0.2 AI (0.0-0.9); Sjogren's Anti-SS-A <0.2 AI (0.0-0.9); Sjogren's Anti-SS-B <0.2 AI (0.0-0.9)
[2023-03-11 12:12] LABS: Anti-Cyclic Citrullinated Pept 7 units (0-19)
== END 2023-03-10 23:59 ==
PROVIDERS: PCP Physician Assistant; Visit Provider Physician Assistant
DX: Z12.2 Encounter for screening for malignant neoplasm of respiratory organs (principal); M25.50 Pain in unspecified joint; Z87.891 Personal history of nicotine dependence; R06.09 Other forms of dyspnea; J44.9 Chronic obstructive pulmonary disease, unspecified; R91.8 Other nonspecific abnormal finding of lung field
CPT/HCPCS: 36415; 71271; 82306; 82607; 85651; 86140; 86200; 86225; 86235; 86431

== ENCOUNTER 2023-05-06 12:54 | Outpatient (CLI) | payer OTHER, SELFPAY ==
[2023-05-06] MEDS: ALBUTEROL 0.083% 2.5 MG/3 ML NEB IH (14:09)
== END 2023-05-06 23:59 ==
LOC: RT 12:55
PROVIDERS: PCP Physician Assistant; Visit Provider Internal Medicine Pulmonary Disease
DX: R06.09 Other forms of dyspnea (principal); R06.02 Shortness of breath; J44.9 Chronic obstructive pulmonary disease, unspecified; Z79.899 Other long term (current) drug therapy
CPT/HCPCS: 94060; 94618; 94727; 94729

== ENCOUNTER 2024-04-10 13:21 | Outpatient (CLI) | payer OTHER, SELFPAY ==
--- NOTE | 2024-04-10 13:24 | XR_ITS ---
FINAL REPORT CLINICAL HISTORY: HYPOXIA COMPARISON: 02/07/2023 FINDINGS: PA and lateral views of the chest were obtained. There are changes of emphysema. No acute pulmonary density is evident. There is no evidence of effusion or other pleural disease. The mediastinum has a normal appearance. The cardiac silhouette is unremarkable. IMPRESSION: No acute findings. Reviewed, Interpreted and Dictated by Jazmyn Steele MD Transcribed by Carisa Keller Authenticated and [facility]
== END 2024-04-10 23:59 | disposition home or self-care (01) ==
LOC: LAB 13:22
PROVIDERS: PCP Nurse Practitioner; Visit Provider Nurse Practitioner
DX: R09.02 Hypoxemia (principal)
CPT/HCPCS: 71046

== ENCOUNTER 2024-07-04 15:41 | Outpatient (CLI) | payer OTHER, SELFPAY ==
--- NOTE | 2024-07-04 15:43 | MM_ITS ---
PROCEDURE INFORMATION: Exam: Bilateral Screening 3D Mammography Exam date and time: 07/04/2024 3:51 PM Age: 59 years old Clinical indication: Screening examination TECHNIQUE: Imaging protocol: Bilateral Screening tomosynthesis and 2D mammography including computer-aided detection (CAD) when performed. COMPARISON: DMDXUAVR DIG MAMM-DX UNI A/VW-RT W/CAD 03/04/2016 1:54 PM FINDINGS: MAMMOGRAPHY: Breast composition: There are scattered areas of fibroglandular density. Mass: None. Architectural distortion: None. Calcifications: No suspicious calcifications. Asymmetric density: None. Skin thickening: None. Axillary adenopathy: None. IMPRESSION: No mammographic evidence of malignancy. Annual screening is recommended unless otherwise clinically indicated. ASSESSMENT: BI-RADS Category 1: Negative.
== END 2024-07-04 23:59 | disposition home or self-care (01) ==
LOC: RAD 15:41
PROVIDERS: PCP Nurse Practitioner; Visit Provider Nurse Practitioner
DX: Z12.31 Encounter for screening mammogram for malignant neoplasm of breast (principal); R92.323 Mammographic fibroglandular density, bilateral breasts
CPT/HCPCS: 77063; 77067

== ENCOUNTER 2025-01-29 11:49 | Emergency (ER) | payer OTHER, SELFPAY ==
--- NOTE | 2025-01-29 11:57 | ECG_ITS ---
APPROVED REPORT Exam: Resting ECG HR:109 bpm ECG Measurements Heart Rate 109 AXES SD 128 P 88 QRSd 80 QRS 82 QT 299 T 73 QTc 363 Conclusion SINUS TACHYCARDIA RIGHT ATRIAL ENLARGEMENT [0.3mV P-WAVE] POSSIBLE LEFT ATRIAL ENLARGEMENT [-0.1mV P-WAVE IN V1/V2] MODERATE ST DEPRESSION [0.05+ mV ST DEPRESSION] ABNORMAL ECG Electronically signed by : PEDRO MAIN, 02/01/2025 07:14:11
--- OUTSIDE RECORDS SUMMARY | 2025-01-29 11:57 | XMS_ITS | Clinical Summary ---
Author Organization Healthcare Address [address] [place] [address] Care Team Providers Care Plant Assigner Name Role Phone Sunni Shook APRN Primary Care Provider [phone] Immunizations Immunization Administration Dates Next Due Influenza, Unspecified 11/11/2016 Influenza, seasonal, injectable 02/08/2014 Pneumococcal Conjugate PCV 13 08/14/2015 Pneumococcal, Unspecified 11/11/2016 Family History Medical History Relation Name Comments Hypertension Other Relation Name Status Comments Other Social History Tobacco Use Types Packs/Day Years Used Date Smoking Tobacco: Heavy Smoker Comments:Heavy tobacco smoke r who smokes more than 10 cigarettes per day Alcohol Use Standard Drinks/Week Comments Yes 0 (1 standard drink = 0.6 oz pure alcohol) Alcoholic Drinks/day: Social alcohol use Comments Unknown Sex and Gender Information Value Date Recorded Sex Assigned at Not on file Legal Sex Female 7:26 PM EDT Gender Identity Not on file Sexual Orientation Not on file Last Filed Vital Signs Vital Sign Reading Time Taken Comments Blood Pressure 134/74 09/27/2019 1:56 PM EDT Pulse 82 09/27/2019 1:56 PM EDT Temperature 36.7 C (98.1 F) 09/27/2019 1:56 PM EDT Respiratory Rate 16 09/27/2019 1:56 PM EDT Oxygen Saturation - - Inhaled Oxygen Concentration - - Weight 57.8 kg (127 lb 6.8 oz) 09/27/2019 1:56 P M EDT Height 162.6 cm (5' 4 ) 07/20/2019 11:56 AM EDT Body Mass Index 21.87 07/20/2019 11:56 AM EDT Plan of Treatment Not on file Care Teams Plant Assigner Relationship Specialty Start Date End Date Sunni Shook APRN [address] [facility] [place] [address] [facility] - General 06/21/20
--- OUTSIDE RECORDS SUMMARY | 2025-01-29 11:57 | XMS_ITS | Clinical Summary ---
Author Organization [facility] yste Address [address] [place] [address] Care Team Providers Care Casket Trimmer Name Role Phone Unavailable Primary Care Provider Unavailabl e Social History Tobacco Use Types Packs/Day Years Used Date Smoking Tobacco: Never Assessed Abuse Screen Answer Date Recorded Unsafe at Home or Work/School Not on file Feels Threatened by Someone? Not on file 12/2022 Does Anyone Keep You from Co ntacting Others or Doint Things Outside the Home? Not on file 11/18/2022 Physical Sign of Abuse Present Not on file 1 Housing Stability Answer Date Recorded Current Living Arrangements Not on file 11/08 Potentially Unsafe Housing Conditions Not on jennifer e 11/18/2022 Family and Community Support Answer Jovon e Recorded Help with Day-to-Day Activities Not on file 11/18/2022 Lonely or Isolated Not on file 11/18/2022 Employment Answer Date Recorded Do you want help finding or keeping work or a dionne b? Not on file 11/18/2022 Disabilities Answer Date Recorded Concentrating, Remembering, or Making Decisions Difficulty Not on file 11/18/2022 Doing Errands Independently Difficulty Not on fi le 11/18/2022 Education Answer Date Recorded Help with school or training? Not on file Preferred Language Not on file 11/18/2022 Comments Unknown Sex and Gender Information Value Date Recorded Sex Assigned at Not on file Legal Sex Female 12:32 PM EDT Gender Identity Not on file Sexual Orientation Not on file Plan of Treatment Health Maintenance Due Date Last Done Comments ANNUAL PHYSICAL 1967 Annual Gynecologic Pelvic and Breast Exam 1967 HEPATITIS C SCREENING 1967 TDAP/TD VACCINES (1 - Tdap) 1986 MAMMOGRAM 2007 COLOGUARD 01/06/2012 COLON CANCER SCREENING 5 YEAR SIGMOIDOSCOPY 01/06/2012 COLONOSCOPY 01/06/2012 COLORECTAL CANCER SCREENING 01/06/2012 CT COLONOGRAPHY 01/06/2012 FECAL OCCULT BLOOD TEST 01/06/2012 FIT Testing (1 year) 01/06/2012 Pneumococcal Vaccine 50+ (1 of 1 - PCV) 2017 ZOSTER VACCINE (1 of 2) 2017 INFLUENZA VACCINE 09/08/2024
[2025-01-29 12:03] VITALS: BP 162/96; PULSE 117; RESP 18; TEMP 36.9; O2SAT 95; BMI 23.0
--- NOTE | 2025-01-29 12:18 | XR_ITS ---
FINAL REPORT CLINICAL HISTORY: Nonspecific cough COMPARISON: None FINDINGS: PA and lateral views of the chest were obtained. No acute pulmonary density is evident. There are changes of emphysema. There is no evidence of effusion or other pleural disease. The mediastinum has a normal appearance. The cardiac silhouette is unremarkable. IMPRESSION: Unremarkable chest exam. Reviewed, Interpreted and Dictated by Jazmyn Steele MD Transcribed by Rina Branham Authenticated and . [facility]
[2025-01-29 12:26] LABS: Coronavirus 19, PCR Not Detected (NotDetected); Hematocrit 50.9 % (37.0-47.0); Hemoglobin 16.6 g/dL (12.2-16.2); Immature Granulocytes % 0.3 %; Influenza A, PCR Not Detected (NotDetected); Influenza B, PCR Not Detected (NotDetected); Mean Corpuscular HGB Conc 32.6 g/dL (31.8-35.4); Mean Corpuscular Hemoglobin 28.9 pg (27.0-31.2); Mean Corpuscular Volume 88.5 fl (81-99); Nucleated Red Blood Cells % 0 %; Platelet Count 386 K/mm3 (142-424); Red Blood Count 5.75 M/mm3 (4.20-5.40); Red Cell Distribution Width-SD 42.3 fL; White Blood Count 18.8 K/mm3 (4.8-10.8)
[2025-01-29 12:30] VITALS: BP 149/86; PULSE 91; RESP 16; O2SAT 97
[2025-01-29 12:31] LABS: Lactate Venous 1.6 mmol/L (0.4-2.0); VBG HCO3 30.5 mmol/L (23-30); VBG PH 7.32 mmol/L (7.31-7.41); VBG PO2 31.9 mmol/L (28-40)
--- NOTE | 2025-01-29 12:32 | ED_ITS ---
Discharge Plan Disposition Patient Disposition: Home, Self-Care Prescriptions Prescriptions: New ipratropium-albuterol 0.5 mg-3 mg(2.5 mg base)/3 mL solution for nebulization 3 ml inhalation Q20M PRN (Reason: shortness of breath or wheezing) Qty: 180 0RF Rx Instructions: for up to 3 doses back to back every 3 hours as needed azithromycin [Zithromax Z-Ranulfo] 250 mg tablet 250 mg PO DAILY 4 Days Qty: 4 0RF Rx Instructions: start on day 2 of therapy levofloxacin 750 mg tablet 750 mg PO DAILY 5 Days Qty: 5 0RF No Action loratadine [Allergy Relief (loratadine)] 10 mg tablet 10 mg PO DAILY PRN (Reason: allergic symptoms) Qty: 30 3RF nicotine 7 mg/24 hr patch 24 hour See Rx Instructions .ROUTE .COMPLEX Qty: 28 0RF Dose Instruction: APPLY 1 PATCH TO SKIN EVERY 24 HOURS Rx Instructions: APPLY 1 PATCH TO SKIN EVERY 24 HOURS azelastine 137 mcg (0.1 %) spray,non-aerosol 1 spray intranasal BID 90 Days Qty: 30 2RF Rx Instructions: administer into each nostril azelastine 137 mcg (0.1 %) spray,non-aerosol 1 spray intranasal BID 90 Days Qty: 30 2RF Rx Instructions: administer into each nostril albuterol sulfate 90 mcg/actuation HFA aerosol inhaler 2 inh inhalation QID PRN (Reason: shortness of breath or wheezing) 90 Days Qty: 8.5 2RF Trelegy Ellipta 100-62.5-25 mcg blister with device 1 inh inhalation DAILY Qty: 180 2RF albuterol sulfate [Ventolin HFA] 90 mcg/actuation HFA aerosol inhaler 2 puff INHALATION QIDP PRN (Reason: Shortness Of Breath Or Wheezing) ipratropium-albuterol 0.5 mg-3 mg(2.5 mg base)/3 mL solution for nebulization 3 ml inhalation Q20M PRN (Reason: shortness of breath or wheezing) 30 Days Qty: 90 0RF Rx Instructions: for 3 doses Referrals Follow up/Referrals: Leah Jensen APRN [Primary Care Provider, Medical] - See instructions Activity Restrictions/Add. Instructions Additional Instructions/Restrictions: At this time it was felt you are safe to be discharged home. If new or worsening symptoms please do not hesitate to return the emergency department. Please take antibiotics as prescribed starting tomorrow and use your breathing treatments as needed and follow-up with your family doctor at some point this week to make sure things are headed in the right direction. Clinical Impressions Clinical Impression: Acute exacerbation of chronic obstructive pulmonary disease Print Language Print Language: Macanese Discharge ED Provider: Sacha Lozada General Chief Complaint: Shortness of Breath/Dyspnea Stated Complaint: SOA Time Seen by Provider: 01/29/25 12:00 Mode of Arrival: Ambulatory Source of Information: Patient Description of Symptoms (Recalled from ER Triage Doc. by RN): PT presents for evaluation of shortness of breath and productive cough that has progressively become worse. Pt states she just completed a prescribed dose of cefdinir that was prescribed by her pcp. Pt denies any other symptoms. Pt was supposed to have an appointment with PCP this afternoon. Pt has a hx of copd, and is on 3L baseline. o2 was increased to 4L due to patient 02 sat remaining 87-88% History of Present Illness HPI narrative: Patient is a 60-year-old female past medical history of COPD 3 to 4 L nasal cannula at baseline who presents emergency department for evaluation of shortness of breath. Onset was acute occurring since she went to PCP once discharged with cefdinir for which her symptoms have been refractory. No chest pain reported. She has a very long oxygen tubing set up hooked up to her concentrator and they did notice that she is breathing somewhat easier when they hooked her up directly to her tank. She has associated cough. No trauma. No other acute complaints at this time. Please note that above description of symptoms, in this electronic medical record under categorization of recalled from ER triage doctor by RN are reflective of an initial nursing assessment, however, is not reflective of my full history and physical exam that was personally taken and clarified. Consequentially, this preceding description of symptoms, which may include the patient's categorized chief complaint in the EMR, do not reflect my personal clinical impression, and the ultimate description of history of present illness and patient stated complaints should be deferred to this section of the note. Unless stated otherwise or congruent with this section of the note, additional signs, symptoms, or incongruence should be interpreted as inaccurate with my clinical impression. Related Data Home Medications ?Medication ?Instructions ?Recorded ?Confirmed albuterol sulfate 90 mcg/actuation 2 puff inhalation Q IDP PRN 02/09/23 10/18/23 aerosol inhaler (Ventolin HFA) Shortness Of Breath Or Wheezing Previous Rx's ?Medication ?Instructions ?Recorded ipratropium 0.5 mg-albuterol 3 mg 3 ml inhalation Q20M PRN shortness 02/10/23 (2.5 mg base)/3 mL nebulization of breath or wheezing 30 days #90 soln mL nicotine 7 mg/24 hr daily See Rx Instructions .Route 0 04/26/23 transdermal patch .COMPLEX #28 ea loratadine 10 mg tablet (Allergy 10 mg PO DAILY PRN al lergic 05/06/23 Relief (loratadine)) symptoms #30 tabs azelastine 137 mcg (0.1 %) nasal 1 spray intranasal BI D 90 days #30 03/14/24 spray mL azelastine 137 mcg (0.1 %) nasal 1 spray intranasal BI D 90 days #30 07/12/24 spray mL albuterol sulfate 90 mcg/actuation 2 inh inhalation QI D PRN shortness 08/09/24 aerosol inhaler of breath or wheezing 90 day s #8.5 grams fluticasone fur. 100 mcg-umeclid 1 inh inhalation [place] Y #180 grams 01/16/25 62.5 mcg-vilant 25 mcg inhalat.powder (Trelegy Ellipta) azithromycin 250 mg tablet 250 mg PO DAILY 4 days #4 t abs 01/29/25 (Zithromax Z-Ranulfo) ipratropium 0.5 mg-albuterol 3 mg 3 ml inhalation Q20M PRN shortness 01/29/25 (2.5 mg base)/3 mL nebulization of breath or wheezing #180 mL soln levofloxacin 750 mg tablet 750 mg PO DAILY pneumonia 5 days 01/29/25 #5 tabs Allergies Allergy/AdvReac Type Severity Reaction Status Date / Time doxycycline (DOXYCYCLINE) Allergy Unknown Verified 10/18/23 15:32 [facility] Disclaimer: The information contained in this section may have been updated after the patient was seen, as this information can be updated by other users. Medical History Dyspnea on exertion Multiple pulmonary nodules Encounter for screening for malignant neoplasm of lung COPD mixed type Allergic rhinitis Acute hypoxic respiratory failure COPD exacerbation COPD exacerbation Chronic knee pain Chronic hand pain Chronic elbow pain Joint pain Gastroenteritis Elevated BP without diagnosis of hypertension Neuropathic pain Fatigue Tobacco abuse counseling Body aches Fever Cough Tobacco abuse Hyperlipidemia Ex-smoker for less than 1 year Bronchitis Acute bronchitis Acute respiratory failure with hypoxia Acute exacerbation of chronic obstructive pulmonary disease Tobacco use Lesion of vulva Upper respiratory infection COPD (chronic obstructive pulmonary disease) COPD with acute bronchitis Surgical History History of tonsillectomy Family History Mother Hypertension Social History (Updated 10/18/23 @ 15:33 by She Green) Smoking Status: Current some day smoker tobacco type: e-cigarettes how long ago did patient quit smokin10/02/2021 alcohol intake: never substance use type: denies use current occupational status: employed and other Travel in the last 8 weeks?: None household members: spouse housing: house Have you lived/traveled outside [place] in past 30 days?: No Contact w/someone who lives/traveled outside [place] past 30 days?: No Exposure to someone with infectious disease in past 14 days?: No Do you have a fever (greater than 100.4 F or 38 C)?: No Have you tested positive for COVID-19?: No Exposed to someone with COVID-19 in past 14 days?: No Do you have a sore throat?: No Do you have a cough?: No Do you have any weakness?: No Do you have any diarrhea?: No Are you experiencing any unusual bleeding?: No Do you have any muscle aches/pain?: No Do you have any abdominal pain?: No Are you experiencing loss of taste or smell?: No Other Medical History Have you received the Flu Vaccine for this season: No Have you received the Pneumonia Vaccine: Yes ROS Obtained: Yes Systems reviewed as appropriate & no additional complaints except as documented Physical Exam General General appearance: alert Head Head exam: atraumatic and normocephalic Eye Eye exam: Present PERRL and EOMI ENT ENT exam: Present mucous membranes moist Neck Neck exam: Present normal inspection Chest Chest inspection: Present normal inspection and symmetric chest wall rise Respiratory Respiratory exam: Present respiratory distress, wheezes, accessory muscle use and other (Tachypnea); Absent normal lung sounds bilaterally Cardiovascular Cardiovascular exam: Present normal rhythm and tachycardia Abdominal Exam Abdominal exam: Present soft; Absent tenderness Extremities Exam Extremities exam: Present normal inspection; Absent edema Neurological Exam Neurological exam: Present alert and CN II-XII intact Psychiatric Psychiatric exam: Present normal affect Skin Skin exam: Present warm and dry HEART Score HEART Score HEART Score assessment performed?: Yes History (anamnesis): Slightly suspicious ECG: Non-specific disturbance Age: 45-65 years Risk factors: 1-2 risk factors Troponin: </= normal limit HEART Score: 3 Critical Care Critical Care Time Critical Care Time: Yes Attestation: On 01/29/25, the high probability of a clinically significant, sudden or life threatening deterioration of the following system(s) required my full and direct attention, intervention and personal management. The time I documented below is in addition to time spent performing reported procedures but includes the following listed in this critical care notation. Total Time Total Critical Care Time: 35 Medical Decision Making Franc Inquiry Pt receiving controlled substance: No Vital Signs Vital Signs: 01/29/25 12:03 01/29/25 12:30 01/29/25 13:31 Temperature 98.5 F Temperature Source Oral Pulse Rate 91 H 101 H Pulse Rate [Right] 117 H Respiratory Rate 18 16 22 Blood Pressure 149/86 H 128/73 Blood Pressure [Right Arm] 162/96 H Blood Pressure Mean [Right Arm] 118 02 Sat by Pulse Oximetry 95 97 96 Oxygen Delivery Method Room Air Nasal Cannula Nasal Cannula Oxygen Flow Rate (LPM) 4 4 01/29/25 14:00 Temperature Temperature Source Pulse Rate Pulse Rate [Right] Respiratory Rate 21 Blood Pressure 125/59 L Blood Pressure [Right Arm] Blood Pressure Mean [Right Arm] 02 Sat by Pulse Oximetry Oxygen Delivery Method Oxygen Flow Rate (LPM) Lab Data Labs: Lab Results 01/29/25 11:58: WBC 18.8 H, RBC 5.75 H, Hgb 16.6 H, Hct 50.9 H, MCV 88.5, MCH 28.9, MCHC 32.6, RDW 13.0, Plt Count 386, MPV 9.1, Neut % (Auto) 75.1, Lymph % (Auto) 16.8, Cuming % (Auto) 6.7, Eos % (Auto) 0.6, Baso % (Auto) 0.5, Neut # (Auto) 14.1 H, Lymph # (Auto) 3.2, Cuming # (Auto) 1.3 H, Eos # (Auto) 0.1, Baso # (Auto) 0.1, D-Dimer 0.53 H, Sodium 138, Potassium 3.7, Chloride 97 L, Carbon Dioxide 36 H, Anion Gap 8.7, BUN 14, Creatinine 0.90, Estimated Creat Clear 63, Estimated GFR 64, Est GFR ( Amer) 78, Glucose 90, Calcium 9.5, Total Bilirubin 0.6, AST 28, ALT 16, Alkaline Phosphatase 110, Troponin I < 0.01, NT-Pro-B Natriuret Pep 110, Total Protein 8.3 H D, Albumin 4.8, Globulin 3.5 H, Albumin/Globulin Ratio 1.4, SARS-CoV-2 (PCR) Not detected, Influenza Type A (PCR) Not detected, Influenza Type B (PCR) Not detected, RSV (PCR) Not detected, Rhinovirus (PCR) Detected A 01/29/25 12:18: VBG pH 7.32, VBG pCO2 60.2 H, VBG pO2 31.9, VBG HCO3 30.5 H, VBG Total CO2 32.3 H, VBG O2 Saturation 64.1, VBG Base Excess 4.4 H, VBG Lactic Acid 1.6 01/29/25 11:58 01/29/25 11:58 Response Orders (Tests/Meds): ED MEDICATIONS Discontinued Medications Generic Name Dose Route Start Last Admin Trade Name Freq PRN Reason Stop Dose Admin Albuterol Sulfate 20 mg 01/29/25 13:35 01/29/25 13:51 Albuterol 0.083% 2.5 Mg/3 Ml [facility] 01/29/25 13:36 20 mg ONCE ONE Administration Albuterol/Ipratropium 9 ml 01/29/25 12:18 01/29/25 12:55 Ipratropium/Albuterol 3 Ml Neb 01/29/25 12:19 9 ml ONCE ONE Administration Magnesium Sulfate 2 gm in 50 mls @ 50 mls/hr 01/29/25 12:18 01/29/25 14:01 Magnesium Sulfate 2gm/50ml Premix IV 01/29/25 13:17 Infused ONCE ONE Infusion Ceftriaxone Sodium 1 gm/ 50 mls @ 100 mls/hr 01/29/25 12:21 01/29/25 13:59 Sodium Chloride IV 01/29/25 12:50 Infused ONCE ONE Infusion Azithromycin 500 mg/ Sodium 250 mls @ 250 mls/hr 01/29/25 12:21 01/29/25 14:45 Chloride IV 01/29/25 12:22 Infused ONCE ONE Infusion Methylprednisolone Sodium Succinate 125 mg 01/29/25 12:18 01/29/25 12:56 Methylprednisolone Sod Succ 125mg Vial IV 01/29/25 12:19 125 mg ONCE ONE Administration ORDERS Category Date Time Status CXR 2 view (NOT portable) [XR chest 2V] Stat Exams 01/29/25 12:18 Completed BNP [NT Pro Brain Natriuretic Pep.] Stat Lab 01/29/25 11:58 Completed CBC w/Auto Diff [Complete Blood Count Auto Diff] Stat Lab 01/29/25 11:58 Completed CMP [Comprehensive Metabolic Panel] Stat Lab 01/29/25 11:58 Completed D-Dimer Stat Lab 01/29/25 11:58 Completed Mini Respiratory Panel Stat Lab 01/29/25 11:58 Completed Trop I [Troponin I] Stat Lab 01/29/25 11:58 Completed Troponin I Q3H Lab 01/29/25 15:30 Ordered Troponin I Q3H Lab 01/29/25 18:30 Ordered VBG [Venous Blood Gas] Stat RT 01/29/25 12:18 Completed ECG Data Tracing #1: ECG Narrative: Independently interpreted by me rate is 109, rhythm is regular, axis is normal, no ST elevation in anatomical contiguous leads, QTc 363. MDM Narrative Medical Decision Narrative: In summary patient is a 60-year-old female with past medical history described above who presents emergency department for evaluation of shortness of breath. Patient is hemodynamically stable nontoxic-appearing upon arrival, in moderate respiratory distress, afebrile, on her baseline oxygen requirement. Patient has biphasic wheezing with significant accessory muscle use. I suspect the patient has viral respiratory infection versus pneumonia that has triggered her COPD, differential includes atypical ACS, among others. Workup in totality will be conducted with two-view chest x-ray EKG broad hematologic labs VBG viral swab. Initial inventions include DuoNebs x 3 IV magnesium, ceftriaxone, azithromycin. Will give gentle crystalloid resuscitation with 500 cc of Ringer's. Initial hematologic labs reviewed by me leukocytosis of 18.8, D-dimer 0.53 pulmonary embolism excluded per years criteria, remarkably well compensated acid-base status with chronic hypercarbia, no ROBERTO or critical electrolyte abnormality. Chest x-ray informally interpreted by me, bilateral perihilar opacities with some interstitial prominence however she has interstitial prominence at baseline makes it difficult to interpret. Upon repeat evaluation patient was opening up and had persistent wheezing for which continuous albuterol was conducted for an hour. Upon repeat evaluation patient had significant improvement and was feeling much better had good aeration minimal wheezing saturating well without significant tachypnea on her home oxygen setting. Given this patient's oxygen exchanger was exchanged per at [facility] and patient is appropriate for outpatient management at this time will be discharged with a course of DuoNebs, antibiotics and was given multiple return precautions and verbalized understanding.
[2025-01-29 12:33] LABS: Alanine Aminotransferase 16 U/L (12-78); Albumin Level 4.8 g/dl (3.5-5.0); Albumin/Globulin Ratio 1.4 (1.1-1.8); Alkaline Phosphatase 110 U/L (38-126); Anion Gap 8.7 mEq/L (5-15); Aspartate Amino Transferase 28 U/L (14-36); Bilirubin,Total 0.6 mg/dl (0.2-1.3); Blood Urea Nitrogen 14 mg/dl (7-17); Calcium 9.5 mg/dl (8.4-10.2); Carbon Dioxide 36 mmol/L (22.0-30.0); Chloride 97 mmol/L (98-107); Creatinine Clearance Estimated 63 mL/min (50-200); Creatinine,Serum 0.90 mg/dl (0.52-1.04); Estimated Glomerular Filt Rate 64 ml/min (>60); GFR (African American) 78 ML/MIN (>60); Globulin 3.5 g/dL (1.3-3.2); Glucose 90 mg/dl (74-100); Potassium 3.7 mmoL/L (3.5-5.1); Sodium 138 mmol/L (136-145); Total Protein,Serum 8.3 g/dl (6.3-8.2)
[2025-01-29 12:37] LABS: D-Dimer 0.53 ug/mL (0.0-0.5)
[2025-01-29 12:39] LABS: VBG PCO2 60.2 mmol/L (35-51)
[2025-01-29 12:43] LABS: NT Pro Brain Natriuretic Pep. 110 pg/mL (0-125)
[2025-01-29 12:53] LABS: Troponin I < 0.01 ng/ml (0.00-0.034)
[2025-01-29] MEDS: MAGNESIUM SULFATE IN WATER 2 GM/50 ML PIGGYBACK IV (12:55)
[2025-01-29] MEDS: IPRATROPIUM/ALBUTEROL 3 ML NEB 9 ML IH (12:55)
[2025-01-29] MEDS: CEFTRIAXONE 1 GM 1 GM in 0.9 % SODIUM CHLORIDE 50 ML IV (12:56)
[2025-01-29] MEDS: METHYLPREDNISOLONE SOD SUCC 125MG VIAL 125 MG IV (12:56)
--- NOTE | 2025-01-29 13:19 | PC.NURSE ---
Roro Nurse cigarette lighter repairer attempts to obtain second IV access. 2 attempts were made. This RN attempted to stick the Left wrist. Unsuccessful attempt
--- NOTE | 2025-01-29 13:21 | PC.NURSE ---
Per provider patient is ok to eat/drink?
[2025-01-29 13:31] VITALS: BP 128/73; PULSE 101; RESP 22; O2SAT 96
[2025-01-29] MEDS: AZITHROMYCIN 500 MG in 0.9 % SODIUM CHLORIDE 250 ML 250 MG IV (13:40)
--- NOTE | 2025-01-29 13:40 | PC.NURSE ---
rt called for continuous neb
[2025-01-29] MEDS: ALBUTEROL 0.083% 2.5 MG/3 ML NEB 20 MG IH (13:51)
[2025-01-29 14:00] VITALS: BP 125/59; RESP 21
[2025-01-29 15:06] VITALS: BP 122/68; PULSE 104; RESP 18; TEMP 36.8; O2SAT 98
== END 2025-01-29 15:08 | disposition home or self-care (01) ==
PROVIDERS: Emergency Provider Emergency Medicine; PCP Nurse Practitioner
DX: J44.1 Chronic obstructive pulmonary disease with (acute) exacerbation (principal); F17.290 Nicotine dependence, other tobacco product, uncomplicated; Z99.81 Dependence on supplemental oxygen
CPT/HCPCS: 71046; 80053; 82803; 83880; 84484; 85025; 85378; 87631; 93005; 96365; 96375; 99285; J0456; J0696; J2919; J3475; J7050